=== PATIENT | female | born 1975 | race Caucasian/White ===

== ENCOUNTER → 2018-04-05 09:04 | Outpatient (CLI) | payer BC, SELFPAY ==
--- NOTE | 2018-04-05 09:12 | VDLE_ITS ---
Reason For Study: LEG SWELLING RIGHT LEFT CFV is compressible, spontaneous, phasic, CFV is compressible, spontaneous, phasic, competent and demonstrates normal competent, and demonstrates normal augmentation. augmentation. FV is compressible, spontaneous, phasic, FV is compressible, spontaneous, phasic, competent and demonstrates normal competent and demonstrates normal augmentation. augmentation. POP V is compressible, spontaneous, phasic, POP V is compressible, spontaneous, phasic, competent and demonstrates normal competent and demonstrates normal augmentation. augmentation. T/P Trunk is compressible. T/P Trunk is compressible. PTV is compressible. PTV is compressible. RT PerV is compressible. LT PerV is compressible. S/F junction competent SFJ is competent GSV competent GSV is competent SSV competent. SSV is competent. Procedure Exam performed in department. Interpretation Summary Deep veins of the lower extremities are bilaterally patent and compressible segmentally. There is no evidence of deep vein thrombosis on either side. Valvular competence appears intact within the proximal deep venous systems bilaterally. The greater saphenous veins appear bilaterally patent and compressible segmentally. Sapheno-femoral junctions are bilaterally competent . Valvular competence appears to be intact segmentally within the greater saphenous veins bilaterally. Small saphenous veins are patent and competent bilaterally. Ordering Physician: Apryl Norman Referring Physician: MD Chava Clark Performed By: Zayda Apodaca RVT
--- NOTE | 2018-04-05 09:58 | RAD_ITS ---
STUDY: X-RAY CHEST REASON FOR EXAM: Female, 42 years old. Dyspnea TECHNIQUE: Frontal and lateral views of the chest. COMPARISON: None. FINDINGS: The lungs are clear and expanded. There is no demonstrated pleural abnormality. Normal size heart. Normal mediastinum and fatoumata. Normal visualized pulmonary arteries. Normal visualized aortic arch and descending thoracic aorta. Normal visualized thoracic spine. Normal visualized ribs, clavicles, and shoulders. There is no demonstrated abnormality of the visualized soft tissue structures of the upper abdomen. RAD/Chest PA and Lateral IMPRESSION: Normal x-ray examination of the chest. Electronically Signed: Willie Troy MD at 23:58 EDT , Service support ,
--- NOTE | 2018-04-06 15:09 | LEAS_ITS ---
Arterial Study - Arterial Study Arterial Study: This is a 42-year-old female with a history of smoking. She presents with paresthesias and discoloration of her feet. She also complains of pain in the lower extremities with short distances of ambulation. Suspecting the presence of atherosclerotic peripheral arterial occlusive disease, the patient was brought to the noninvasive vascular laboratory at this time for the purpose of bilateral noninvasive lower extremity arterial assessment. Doppler signal assessment was used to evaluate the pulses at ankle level bilaterally. The posterior tibial and dorsalis pedis pulses were triphasic bilaterally. Segmental limb pressures were obtained at ankle level bilaterally. The right ankle pressure, as determined by posterior tibial pulse, was measured at 165 mmHg. The right ankle pressure, as determined by dorsalis pedis pulse, was measured at 146 mmHg. The left ankle pressure, as determined by posterior tibial pulse, was measured at 163 mmHg. The left ankle pressure, as determined by dorsalis pedis pulse, was measured at 162 mmHg. Resting ankle-brachial indices were calculated bilaterally. The resting right ankle-brachial index was calculated to be 1.28. The resting left ankle- brachial index was calculated to be 1.26. The patient was then exercised on treadmill at 1.5 mph and a 5% grade. The patient complained of paresthesias after 1 minute of exercise, and exercise was terminated after 2 minutes due to chest pressure and shortness of breath. Ankle pressures were determined 1 minute following cessation of exercise. The right ankle pressure was measured at 172 mmHg. The left ankle pressure was measured at 177 mmHg. Impression: Based upon the findings of this resting and exercise noninvasive lower extremity arterial study, there is no evidence of significant atherosclerotic peripheral arterial occlusive disease in the lower extremities bilaterally. Triphasic waveforms were noted at ankle level bilaterally. Resting ankle-brachial indices are bilaterally normal. Following a period of exercise, ankle pressures augmented bilaterally, which is a normal physiological response.
== END ==
PROVIDERS: Family Provider Preventive Medicine Occupational Medicine; PCP Preventive Medicine Occupational Medicine; Visit Provider Family Medicine
DX: R06.09 Other forms of dyspnea (principal); R25.2 Cramp and spasm; R06.00 Dyspnea, unspecified; M79.89 Other specified soft tissue disorders
CPT/HCPCS: 71046; 93922; 93970

== ENCOUNTER → 2023-12-29 | Outpatient (CLI) | payer BC, SELFPAY | END | disposition home or self-care (01) | LOC: LABSPEC 15:20 | PROVIDERS: PCP Preventive Medicine Occupational Medicine; Referring Provider Otolaryngology; Visit Provider Otolaryngology | DX: J02.9 Acute pharyngitis, unspecified (principal) | CPT/HCPCS: 87070; 87077 ==

== ENCOUNTER → 2024-01-02 | Outpatient (CLI) | payer BC, SELFPAY ==
--- NOTE | 2024-01-02 11:30 | US_ITS ---
INDICATION: NODULE EXAMINATION: Ultrasound US Thyroid (eg thyroid, parathyroid, parotid) TECHNIQUE: Garcia scale and color doppler imaging was performed of the thyroid gland. COMPARISON: No relevant prior comparison study available FINDINGS: RIGHT THYROID LOBE: 5.6 x 2.5 x 2.5 cm, volume 18.17 mL. Parenchyma: The gland echotexture is homogenous. Thyroid vascularity is normal. LEFT THYROID LOBE: 5.7 x 3.1 x 2.6 cm, volume 24.35 mL. Parenchyma: The gland echotexture is homogenous. Thyroid vascularity is normal. ISTHMUS: 0.4 cm in maximum AP dimension. Estimated total number of nodules greater than equal to 1 cm: 3. [employer] nodules are described as follows: 1. Location: Left mid Size: 1.7 x 1.6 x 1.4 cm, volume 1.9 mL. Nodule characteristics: Composition: Mixed cystic and solid (1). Echogenicity: Isoechoic (1). Shape: Wider than tall (0). Margins: Smooth (0). Echogenic Foci: None (0). ACR TI-RADS total points: 2. ACR TI-RADS category: 2. 2. Location: Left lower Size: 1.6 x 1.4 x 1.7 cm, volume 2 mL. Nodule characteristics: Composition: Solid or almost completely solid (2). Echogenicity: Isoechoic (1). Shape: Wider than tall (0). Margins: Smooth (0). Echogenic Foci: None (0). ACR TI-RADS total points: 3. ACR TI-RADS category: 3. 3. Location: Right mid Size: 1 x 0.7 x 1.4 cm, volume 0.5 mL. Nodule characteristics: Composition: Solid or almost completely solid (2). Echogenicity: Isoechoic (1). Shape: Wider than tall (0). Margins: Smooth (0). Echogenic Foci: None (0). ACR TI-RADS total points: 3. ACR TI-RADS category: 3. LYMPH NODES: No lymphadenopathy is seen in the tissue surrounding the thyroid gland. US/Thyroid IMPRESSION: Multiple bilateral thyroid nodules are identified as detailed above. Nodule #1 requires no specific follow-up. Nodule #3 also requires no specific follow-up. Nodule # 2 is appropriate for follow-up in one year based on size and appearance. ACR TI-RADS RECOMMENDATION REFERENCE: Ultrasound-guided fine-needle aspiration, follow-up ultrasound, no further follow-up. *TR 1 (0 points) and TR 2 (2 points): No FNA or follow-up. *TR 3 (3 points): FNA if more than or equal to 2.5 cm in maximum dimension. Follow-up ultrasound in 1, 3, and 5 years if 1.5 to 2.4 cm in maximum dimension. *TR 4 (4-6 points): FNA if more than or equal to 1.5 cm in maximum dimension. Follow-up ultrasound in 1, 2, 3, and 5 years if 1 to 1.4 cm in maximum dimension. *TR 5 (more than or equal to 7 points): FNA if more than or equal to 1 cm in maximum dimension. Follow-up ultrasound every year for 5 years if 0.5 to 0.9 cm in maximum dimension. *TR 3, TR 4, or TR 5 nodules that are below the size threshold for follow-up receive no follow-up. Electronically Signed: Stanley Corona MD at 7:12 EDT Reading Location ID and State: [address] [place] [address] Tel , Service support ,
== END | disposition home or self-care (01) ==
LOC: US 11:25
PROVIDERS: PCP Preventive Medicine Occupational Medicine; Referring Provider Otolaryngology; Visit Provider Otolaryngology
DX: E04.1 Nontoxic single thyroid nodule (principal)
CPT/HCPCS: 76536

== ENCOUNTER → 2024-08-10 | Outpatient (CLI) | payer BC, SELFPAY ==
--- OUTSIDE RECORDS SUMMARY | 2024-08-10 18:56 | XMS RPT_ITS | CCD ---
Author Organization [facility] Inform ion Partnership [facility] Care Team Providers Care Hand Candle Dipper Name Role Phone BRANDEN VAUGHAN DO Primary Care Physician [phone] Paola PT, Merissa Unavailable Unavailable ROCK ROS[employer] MARKETING ENGINEER, THUY Attending BRANDEN Santana DO Primary Care Unavailable BRANDEN VAUGHAN DO Primary Care Unavailable DEJON ROSARIO-[employer]ETING ENGINEER, SHAD Cee Attending Lauren DAVIS, SHAD Cee Admitting Unavai labBREANNA De Oliveira Referring Unavailable Allergies Allergy Classification Reported Allergen(s) Allergy Type Date of Onset Reaction(s) Facility (4 sources) Acetaminophen / HYDROcodone; Translations: [acetaminophen-hy drocodone] Drug Allergy [facility] Work Phone: (4 sources) Acetaminophen / oxyCODONE; Translations: [acetaminophen-ox ycodone] Drug Allergy [facility] Work Phone: (4 sources) gabapentin; Translations: [gabapentin] Drug Allergy serotonin syndrome [facility] Work Phone: (4 sources) Latex Allergy to substance [facility] Work Phone: (1 source) diazePAM; Translations: [diazepam] Drug Allergy Tachycardia (finding) [facility] Medications Current Medications Medication Drug Class(es) Dates Sig (Normalized) Sig (Original) albuterol MDI (90 mcg/inh) CFC free inhalation aerosol (4 sources) Start: 08-08-2020 take 2 puff(s) by inhalation every four hours as needed for wheezing albuterol MDI (90 mcg/inh) CFC free inhalation aerosol 2 puff(s), Inhalation, q4h, PRN as needed for wheezing, # 1 EA, 0 Refill(s), [facility]acy: [facility] Shortness of breath with exposure to COVID-19 virus, 160, cm, 07/18/20 14:47:00 EDT, Height, kg, 07/18/20 14:47:00 EDT, Dosing Weight Start Date: 08/08/20 Status: Ordered amoxicillin 875 mg / clavulanate 125 mg oral tablet (1 source) Penicillin-class Antibacterial Start: 11-17-2023 End: 11-24-2023 take 1 tablet by mouth every twelve hours amoxicillin-cla vulanate 875 mg-125 mg oral tablet 1 tab(s), Oral, q12h, X 7 day(s), # 14 tab(s), 0 Refill(s), 11/24/23 4:07:00 PM EST, Pharmacy: [facility] #[id number], 160, cm, 11/16/23 21:57:00 EST, Height, 122.7, kg, 11/16/23 21:57:00 EST, Dosing Weight Start Date: 11/17/23 Stop Date: 11/24/23 Status: Ordered diphenhydrAMINE hydrochloride 25 mg oral capsule (4 sources) Histamine-1 Receptor Antagonist Start: 07-15-2019 Benadryl 25 mg oral capsule Dose : 25 mg = 1 cap(s), Oral, TID, PRN for allergy symptoms, # 30 cap(s), 0 Refill(s) Start Date: 07/15/19 Status: Ordered fluticasone propionate 0.05 mg/actuat metered dose nasal spray (1 source) Corticosteroid Start: 11-02-2023 take 50 ug nasal route twice daily Flonase 50 mcg/inh nasal spray 50 mcg Dose = 1 spray(s), Nostril, each, BID, # 16 gram(s), 0 Refill(s), Pharmacy: [facility] #[id number], Acute sinusitis, 160, cm, 11/02/23 13:50:00 EST, Height, kg, 11/02/23 13:50:00 EST, Dosing Weight Start Date: 11/02/23 Status: Ordered hydroCHLOROthiazide 25 mg / triamterene 37.5 mg oral tablet (2 sources) Potassium-sparing Diuretic, Thiazide Diuretic Start: 06-05-2022 take 1 tablet by mouth once daily as needed hydrochlorothia zide-triamteren e 25 mg-37.5 mg oral tablet Dose = 1 tab(s), Oral, qDay, PRN Swelling, # 90 tab(s), 1 Refill(s), Pharmacy: [facility]/pharmacy #[id number], Pedal edema, 160, cm, 04/25/22 15:08:00 EDT, Height, kg, 04/25/22 15:08:00 EDT, Dosing Weight Start Date: 06/05/22 Status: Ordered Start: 03-14-2022 take 1 tablet by mouth once daily hydrochlorothiazide-triamterene 25 mg-37 .5 mg oral tablet Dose = 1 tab(s), Oral, qDay, # 30 tab(s), 1 Refill(s), Pharmacy: [address] Pedal edema, 160, cm, 03/14/22 11:04:00 EDT, Height Start Date: 03/14/22 Status: Ordered ammonium lactate 120 mg/ml topical cream (2 sources) Start: 03-14-2022 ammonium lacta te 12% topical cream Apply 1 elvi, Topical, BID, PRN Dry skin, # 385 gram(s), 5 Refill(s), [facility] Cream, 160, cm, 03/14/22 11:04:00 EDT, Height, 125.9 Start Date: 03/14/22 Status: Ordered omeprazole 10 mg delayed release oral capsule (4 sources) Proton Pump Inhibitor Start: 03-09-2014 omeprazole 10 mg oral delayed release capsule (NF) Dose : 10 mg = 1 cap(s), Oral, qDayAC, 0 Refill(s) Start Date: 03/09/14 Status: Ordered QUEtiapine 25 mg oral tablet (1 source) Atypical Antipsychotic Start: 11-02-2023 take 1-3 tablets by mouth at bedtime as needed for sleep QUEtiapine 25 mg oral tablet PRN Sleep, take 1 to 3 tablets by mouth at bedtime Start Date: 11/02/23 Status: Ordered topiramate 25 mg oral tablet (2 sources) Start: 03-14-2022 topiramate 25 mg oral tablet Dose : 75 mg = 3 tab(s), Oral, qDay, # 60 tab(s), 0 Refill(s) Start Date: 03/14/22 Status: Ordered Completed/Discontinued Medications Medication Drug Class(es) Dates Sig (Normalized) Sig (Original) LORazepam 1 mg oral tablet (4 sources) Benzodiazepine Start: 10-30-2020 End: 11-29-2020 LORazepam 1 mg oral tablet Dose : 1 mg = 1 tab(s), Oral, q6hr, PRN as needed for anxiety, # 120 tab(s), 0 Refill(s), Pharmacy: [facility], Chronic anxiety, 160, cm, 10/30/20 16:08:00 EST, Height, 115.4, kg, 10/30/20 16:08:00 EST, Dosing Weight Start Date: 10/30/20 Stop Date: 11/29/20 Status: Ordered Problems Active Problems Problem Classification Problem Date Documented Date Episodic/Chronic Acute and chronic tonsillitis (1 source) Acute tonsillitis; Translations: [Acute tonsillitis, unspecified] Onset: 11-17-2023 Episodic Anxiety disorders (8 sources) Chronic anxiety; Translations: [Posttraumatic stress disorder] 03-06-2020 Chronic Attention-deficit, conduct, and disruptive behavior disorders (4 sources) Attention deficit hyperactivity disorder, 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 Esophageal disorders (4 sources) Gastric reflux 03-09-2014 Chronic Menopausal disorders (4 sources) Menopausal flushing 05-15-2020 Chronic Other nutritional; endocrine; and metabolic disorders (2 sources) Obesity 08-02-2021 Chronic Other skin disorders (2 sources) Dry skin 03-14-2022 Episodic Other upper respiratory infections (1 source) Acute sinusitis, unspecified; Translations: [Acute sinusitis, unspecified] Onset: 11-17-2023 Episodic Residual codes; unclassified (4 sources) Sleep apnea 03-09-2014 Chronic Residual codes; unclassified (4 sources) Perimenopausal state 05-15-2020 Episodic Residual codes; unclassified (2 sources) Edema of foot 03-14-2022 Episodic Spondylosis; intervertebral disc disorders; other back problems (2 sources) Low back pain 02-26-2021 Episodic Unclassified (4 sources) History of SARS-CoV-2 03-05-2021 Past or Other Problems Problem Classification Problem Date Documented Date Episodic/Chronic Genitourinary symptoms and ill-defined conditions (2 sources) Unspecified symptoms and signs involving the genitourinary system; Translations: [Unspecified symptoms and signs involving the genitourinary system] Onset: 02-26-2023 Episodic Results Test Name Value Interpretation Reference Range Facility .Auto Diffon 11-17-2023 Basophil, Absolute 0.0 10 3/mcL Normal 0.0-0.2 [facility] ([place]) Comment on above: Performed By: #### C BC, GFR, CMP, ANEU, ADIFF #### [address] [address] Basophils/100 WBC (Bld) 0.1 % Normal 0.0-2.5 [facility] ([place]) Comment on above: Performed By: #### C BC, GFR, CMP, ANEU, ADIFF #### [address] [address] Eosinophil, Absolute 0.0 10 3/mcL Normal 0.0-0.4 [facility] ([place]) Comment on above: Performed By: #### C BC, GFR, CMP, ANEU, ADIFF #### [address] [address] Eosinophils/100 WBC (Bld) 0.0 % Normal 0.0-7.0 [facility] ([place]) Comment on above: Performed By: #### C BC, GFR, CMP, ANEU, ADIFF #### [address] [address] Lymphocyte, Absolute 1.0 10 3/mcL Normal 0.8-3.9 [facility] ([place]) Comment on above: Performed By: #### C BC, GFR, CMP, ANEU, ADIFF #### [address] [address] Lymphocytes/100 WBC (Bld) 5.5 % Low 10.0-50.0 [facility] ([place]) Comment on above: Performed By: #### C BC, GFR, CMP, ANEU, ADIFF #### [address] [place] [address] Monocyte, Absolute 0.6 10 3/mcL Normal 0.2-1.0 [facility] ([place]) Comment on above: Performed By: #### C BC, GFR, CMP, ANEU, ADIFF #### [address] [address] Monocytes/100 WBC (Bld) 3.0 % Normal 1.7-13.0 [facility] ([place]) Comment on above: Performed By: #### C BC, GFR, CMP, ANEU, ADIFF #### [address] [address] Neutrophils/100 WBC (Bld) 91.4 % High 37.0-80.0 [facility] ([place]) Comment on above: Performed By: #### C BC, GFR, CMP, ANEU, ADIFF #### [address] [address] .GFRon 11-17-2023 GFR 106 ml/min/1.73sqm Normal [facility] ([place]) Comment on above: Result Comment: GFR Population mean for , Non- Americans Ages 20-29 = 116 mL/min/1.73 sq.m. Ages 30-39 = 107 mL/min/1.73 sq.m. Ages 40-49 = 99 mL/min/1.73 sq.m. Ages 50-59 = 93 mL/min/1.73 sq.m. Ages 60-69 = 85 mL/min/1.73 sq.m. Ages 70+ = 75 mL/min/1.73 sq.m. Chronic Kidney Disease: Less than 60 mL/min/1.73 square meters End Stage Renal Disease: Less than 15 mL/min/1.73 square meters Performed By: #### C BC, ANEU, MDW, ADIFF, BMP, MONO, GFR #### [address] [address] GFR Non- 87 ml/min/1.73sqm Normal [facility] ([place]) Comment on above: Result Comment: GFR Population mean for , Non- Americans Ages 20-29 = 116 mL/min/1.73 sq.m. Ages 30-39 = 107 mL/min/1.73 sq.m. Ages 40-49 = 99 mL/min/1.73 sq.m. Ages 50-59 = 93 mL/min/1.73 sq.m. Ages 60-69 = 85 mL/min/1.73 sq.m. Ages 70+ = 75 mL/min/1.73 sq.m. Chronic Kidney Disease: Less than 60 mL/min/1.73 square meters End Stage Renal Disease: Less than 15 mL/min/1.73 square meters Performed By: #### C YOAN, ALYSIA, W, ADIFF, BMP, MONO, GFR #### [address] [address] .NEUABSon 11-17-2023 Neutrophil, Absolute 17.1 10 3/mcL High 2.9-6.2 A [facility] ([place]) Comment on above: Performed By: #### C YOAN, MD ALYSIAW, ADIFF, BMP, MONO, GFR #### [place] [id number] CBCon 11-17-2023 Erythrocyte distribution width (RBC) [Ratio] 14.5 % Normal 11.5-14.5 [facility] ([place]) Comment on above: Performed By: #### C BC, GFR, CMP, ANEU, ADIFF #### [place] [id number] Hematocrit (Bld) [Volume fraction] 35.7 % Low 37.0-47.0 [facility] ([place] Comment on above: Performed By: #### C BC, GFR, CMP, ANEU, ADIFF #### [address] [address] Hgb 11.8 G/dL Low 12.0-16.0 [facility] ([place] Comment on above: Performed By: #### C BC, GFR, CMP, ANEU, ADIFF #### [address] [address] MCH (RBC) [Entitic mass] 26.7 pg Low 27.0-31.2 [facility] ([place] Comment on above: Performed By: #### C BC, GFR, CMP, ANEU, ADIFF #### [address] [address] MCHC 33.0 G/dL Normal 33.0-37.0 [facility] ([place] Comment on above: Performed By: #### C BC, GFR, CMP, ANEU, ADIFF #### [address] [address] MCV (RBC) [Entitic vol] 80.8 fL Normal 80.0-94.0 [facility] ([place]) Comment on above: Performed By: #### C BC, GFR, CMP, ANEU, ADIFF #### [address] [address] Platelet 263 10 3/mcL Normal 130-400 [facility] ([place]) Comment on above: Performed By: #### C BC, GFR, CMP, ANEU, ADIFF #### [address] [address] Platelet mean volume (Bld) [Entitic vol] 8.3 fL Normal 7.4-10.4 [facility] ([place] Comment on above: Performed By: #### C BC, GFR, CMP, ANEU, ADIFF #### [address] [address] RBC 4.42 10 6/mcL Normal 4.20-5.40 [facility] ([place] Comment on above: Performed By: #### C BC, GFR, CMP, ANEU, ADIFF #### [address] [address] WBC 18.7 10 3/mcL High 4.6-10.8 [facility] ([place] Comment on above: Performed By: #### C BC, GFR, CMP, ANEU, ADIFF #### [address] [address] CMPon 11-17-2023 Albumin Level 2.7 G/dL Low 3.5-5.0 [facility] ([place] Comment on above: Performed By: #### C BC, ANEU, MDW, ADIFF, BMP, MONO, GFR #### [address] [address] Albumin/Globulin [Mass ratio] 0.6 {ratio} Low 1.1-2.5 [facility] ([place] Comment on above: Performed By: #### C BC, ALYSIA, MDW, ADIFF, BMP, MONO, GFR #### [address] [address] ALP [Catalytic activity/Vol] 103 U/L Normal 40-135 [facility] ([place] Comment on above: Performed By: #### C YOAN, ALYSIA, MDW, ADIFF, BMP, MONO, GFR #### [address] [address] ALT [Catalytic activity/Vol] 49 U/L Normal 14-59 [facility] ([place] Comment on above: Performed By: #### C YOAN, ALYSIA, MDW, ADIFF, BMP, MONO, GFR #### [address] [address] AST [Catalytic activity/Vol] 22 U/L Normal 10-40 [facility] ([place] Comment on above: Performed By: #### C YOAN, ALYSIA, MDW, ADIFF, BMP, MONO, GFR #### [address] [address] Bili Total 0.2 mg/dL Normal 0.2-1.0 [facility] ([place]) Comment on above: Result Comment: Use of this assay is not recommended for patients undergoing treatment with eltrombopag due to the potential for falsely elevated results. Performed By: #### C BC, ALYSIA, MDW, ADIFF, BMP, MONO, GFR #### [address] [address] BUN/Creatinine Ratio 18 ratio Normal 7-27 [facility] ([place]) Comment on above: Performed By: #### C BC, ALYSIA, MDW, ADIFF, BMP, MONO, GFR #### [address] [address] Calcium [Mass/Vol] 9.2 mg/dL Normal 8.4-10.2 [facility] ([place] Comment on above: Performed By: #### C BC, ALYSIA, MDW, ADIFF, BMP, MONO, GFR #### [address] [address] Chloride [Moles/Vol] 106 mmol/L Normal 98-107 [facility] ([place]) Comment on above: Performed By: #### C BC, ANEU, MDW, ADIFF, BMP, MONO, GFR #### [place] [address] CO2 [Moles/Vol] 26 mmol/L Normal 22-29 [facility] ([place] Comment on above: Performed By: #### C BC, ANEU, MDW, ADIFF, BMP, MONO, GFR #### [place] [address] Creatinine [Mass/Vol] 0.71 mg/dL Normal 0.55-1.02 [facility] ([place]) Comment on above: Performed By: #### C BC, ALYSIA, MDW, ADIFF, BMP, MONO, GFR #### [place] [address] Electrolyte Balance 11.0 mEq/L Normal 4.0-15.0 [facility] ([place]) Comment on above: Performed By: #### C BC, ANEU, MDW, ADIFF, BMP, MONO, GFR #### [address] [address] Globulin 4.3 G/dL Normal [facility] ([place] Comment on above: Performed By: #### C BC, ALYSIA, MDW, ADIFF, BMP, MONO, GFR #### [address] [address] Glucose [Mass/Vol] 159 mg/dL High 70-105 [facility] [place] Comment on above: Performed By: #### C BC, ANEU, MDW, ADIFF, BMP, MONO, GFR #### [place] [address] Potassium [Moles/Vol] 4.3 mmol/L Normal 3.5-5.1 [facility] ([place]) Comment on above: Performed By: #### C YOAN, JEFF HATFIELD, ADIFF, BMP, MONO, GFR #### [place] [id number] [place], [place] [address] Sodium [Moles/Vol] 143 mmol/L Normal 136-145 [facility] [place] Comment on above: Performed By: #### C YOAN, JEFF HATFIELD, ADIFF, BMP, MONO, GFR #### [place] [id number] [place], [place] [address] Total Protein 7.0 G/dL Normal 6.4-8.2 [facility] ([place] Comment on above: Performed By: #### C YOAN, JEFF HATFIELD, ADIFF, BMP, MONO, GFR #### [place] [id number] [place], [place] [address] Urea nitrogen [Mass/Vol] 13 mg/dL Normal 7-18 [facility] ([place]) Comment on above: Performed By: #### C YOAN, JEFF HATFIELD, ADIFF, BMP, MONO, GFR #### [address] [address] LABORATORYOrdered By: SYSTEM SYSTEM on 11-17-2023 Albumin BCP dye [Mass/Vol] 2.7 G/dL Low 3.5 - 5.0 G/dL AO ADM SS Albumin/Globulin [Mass ratio] 0.6 {ratio} Low 1.1 - 2.5 ratio AO ADM SS ALP [Catalytic activity/Vol] 103 U/L Normal 40 - 135 U/L AO ADM SS ALT With P-5'-P [Catalytic activity/Vol] 49 U/L Normal 14 - 59 U/L AO ADM SS AST With P-5'-P [Catalytic activity/Vol] 22 U/L Normal 10 - 40 U/L AO ADM SS Basophil, Absolute 0.0 103/mcL Normal 0.0 - 0.2 10^3/mcL AO Workflow SS Basophils/100 WBC (Bld) 0.1 % Normal 0.0 - 2.5 % AO Workflow SS Bilirubin [Mass/Vol] 0.2 mg/dL Normal 0.2 - 1 .0 mg/dL AO ADM SS Comment on above: Interpretive Data: U se of this assay is not recommended for patients undergoing treatment with eltrombopag due to the potential for falsely elevated results. Calcium [Mass/Vol] 9.2 mg/dL Normal 8.4 - 10. 2 mg/dL AO ADM SS Chloride [Moles/Vol] 106 mmol/L Normal 98 - 10 7 mmol/L AO ADM SS CO2 [Moles/Vol] 26 mmol/L Normal 22 - 29 mmol/L AO ADM SS Creatinine [Mass/Vol] 0.71 mg/dL Normal 0.55 - 1.02 mg/dL AO ADM SS Electrolyte Balance 11.0 mEq/L Normal 4.0 - 15 .0 mEq/L AO ADM SS Eosinophil, Absolute 0.0 103/mcL Normal 0.0 - 0 .4 10^3/mcL AO Workflow SS Eosinophils/100 WBC (Bld) 0.0 % Normal 0.0 - 7.0 % AO Workflow SS Erythrocyte distribution width (RBC) [Ratio] 14.5 % Normal 11.5 - 14.5 % AO Workflow SS GFR/1.73 sq M.predicted among blacks MDRD (S/P/Bld) [Vol rate/Area] 106 ml/min/1.73sqm Invalid Interpretation Code AO Chemistry S Comment on above: Interpretive Data: GFR Population mean for , Non- Americans Ages 20-29 = 116 mL/min/1.73 sq.m. Ages 30-39 = 107 mL/min/1.73 sq.m. Ages 40-49 = 99 mL/min/1.73 sq.m. Ages 50-59 = 93 mL/min/1.73 sq.m. Ages 60-69 = 85 mL/min/1.73 sq.m. Ages 70+ = 75 mL/min/1.73 sq.m. Chronic Kidney Disease: Less than 60 mL/min/1.73 square meters End Stage Renal Disease: Less than 15 mL/min/1.73 square meters GFR/1.73 sq M.predicted among non-blacks MDRD (S/P/Bld) [Vol rate/Area] 87 ml/min/1.73sqm Invalid Interpretation Code AO Chemistry S Comment on above: Interpretive Data: GFR Population mean for , Non- Americans Ages 20-29 = 116 mL/min/1.73 sq.m. Ages 30-39 = 107 mL/min/1.73 sq.m. Ages 40-49 = 99 mL/min/1.73 sq.m. Ages 50-59 = 93 mL/min/1.73 sq.m. Ages 60-69 = 85 mL/min/1.73 sq.m. Ages 70+ = 75 mL/min/1.73 sq.m. Chronic Kidney Disease: Less than 60 mL/min/1.73 square meters End Stage Renal Disease: Less than 15 mL/min/1.73 square meters Globulin 4.3 G/dL Invalid Interpretation Code AO ADM SS Glucose [Mass/Vol] 159 mg/dL High 70 - 105 mg/dL AO ADM SS Hematocrit (Bld) [Volume fraction] 35.7 % Low 37.0 - 47.0 % AO Workflow SS Hemoglobin (Bld) [Mass/Vol] 11.8 G/dL Low 12.0 - 16.0 G/dL AO Workflow SS Lymphocyte, Absolute 1.0 103/mcL Normal 0.8 - 3 .9 10^3/mcL AO Workflow SS Lymphocytes/100 WBC (Bld) 5.5 % Low 10.0 - 50.0 % AO Workflow SS MCH (RBC) [Entitic mass] 26.7 pg Low 27.0 - 31.2 pg AO Workflow SS MCHC 33.0 G/dL Normal 33.0 - 37.0 G/dL AO Workflow SS MCV (RBC) [Entitic vol] 80.8 fL Normal 80.0 - 94.0 fL AO Workflow SS Monocyte, Absolute 0.6 103/mcL Normal 0.2 - 1.0 10^3/mcL AO Workflow SS Monocytes/100 WBC (Bld) 3.0 % Normal 1.7 - 13.0 % AO Workflow SS Neutrophil, Absolute 17.1 103/mcL High 2.9 - 6 .2 10^3/mcL AO Workflow SS Neutrophils/100 WBC (Bld) 91.4 % High 37.0 - 80.0 % AO Workflow SS Platelet mean volume (Bld) [Entitic vol] 8.3 fL Normal 7.4 - 10.4 fL AO Workflow SS Platelets (Bld) [#/Vol] 263 103/mcL Normal 130 - 400 10^3/mcL AO Workflow SS Potassium [Moles/Vol] 4.3 mmol/L Normal 3.5 - 5.1 mmol/L AO ADM SS Protein [Mass/Vol] 7.0 G/dL Normal 6.4 - 8.2 G/dL AO ADM SS RBC (Bld) [#/Vol] 4.42 106/mcL Normal 4.20 - 5.4 0 10^6/mcL AO Workflow SS Sodium [Moles/Vol] 143 mmol/L Normal 136 - 145 mmol/L AO ADM SS Urea nitrogen [Mass/Vol] 13 mg/dL Normal 7 - 18 mg/dL AO ADM SS Urea nitrogen/Creatinine [Mass ratio] 18 ratio Normal 7 - 27 ratio AO ADM SS WBC (Bld) [#/Vol] 18.7 103/mcL High 4.6 - 10.8 10^3/mcL AO Workflow SS .Auto Diffon 11-16-2023 Basophil, Absolute 0.1 10 3/mcL Normal 0.0-0.2 [facility] ([place]) Comment on above: Performed By: #### C ALYSIA MILTON MDW, ADIFF, BMP, MONO, GFR #### [address] [address] Basophils/100 WBC (Bld) 0.5 % Normal 0.0-2.5 [facility] ([place]) Comment on above: Performed By: #### C ALYSIA MILTON MDW, ADIFF, BMP, MONO, GFR #### [address] [address] Eosinophil, Absolute 0.0 10 3/mcL Normal 0.0-0.4 [facility] ([place]) Comment on above: Performed By: #### C ALYSIA MILTON MDW, ADIFF, BMP, MONO, GFR #### [address] [address] Eosinophils/100 WBC (Bld) 0.0 % Normal 0.0-7.0 [facility] ([place]) Comment on above: Performed By: #### C ALYSIA MILTON MDW, ADIFF, BMP, MONO, GFR #### [address] [address] Lymphocyte, Absolute 0.8 10 3/mcL Normal 0.8-3.9 [facility] ([place]) Comment on above: Performed By: #### C BC, ANEU, MDW, ADIFF, BMP, MONO, GFR #### [address] [address] Lymphocytes/100 WBC (Bld) 5.2 % Low 10.0-50.0 [facility] ([place]) Comment on above: Performed By: #### C BC, ANEU, MDW, ADIFF, BMP, MONO, GFR #### [address] [address] Monocyte, Absolute 0.9 10 3/mcL Normal 0.2-1.0 [facility] ([place]) Comment on above: Performed By: #### C BC, ANEU, MDW, ADIFF, BMP, MONO, GFR #### [address] [address] Monocytes/100 WBC (Bld) 5.7 % Normal 1.7-13.0 [facility] ([place]) Comment on above: Performed By: #### C BC, ANEU, MDW, ADIFF, BMP, MONO, GFR #### [address] [address] Neutrophils/100 WBC (Bld) 88.6 % High 37.0-80.0 [facility] ([place]) Comment on above: Performed By: #### C BC, ANEU, MDW, ADIFF, BMP, MONO, GFR #### [address] [address] .GFRon 11-16-2023 GFR Non- 77 ml/min/1.73sqm Normal [facility] ([place]) Comment on above: Result Comment: GFR Population mean for , Non- Americans Ages 20-29 = 116 mL/min/1.73 sq.m. Ages 30-39 = 107 mL/min/1.73 sq.m. Ages 40-49 = 99 mL/min/1.73 sq.m. Ages 50-59 = 93 mL/min/1.73 sq.m. Ages 60-69 = 85 mL/min/1.73 sq.m. Ages 70+ = 75 mL/min/1.73 sq.m. Chronic Kidney Disease: Less than 60 mL/min/1.73 square meters End Stage Renal Disease: Less than 15 mL/min/1.73 square meters Performed By: #### C BC, ANEU, MDW, ADIFF, BMP, MONO, GFR #### [address] [address] GFR 94 ml/min/1.73sqm Normal [facility] ([place]) Comment on above: Result Comment: GFR Population mean for , Non- Americans Ages 20-29 = 116 mL/min/1.73 sq.m. Ages 30-39 = 107 mL/min/1.73 sq.m. Ages 40-49 = 99 mL/min/1.73 sq.m. Ages 50-59 = 93 mL/min/1.73 sq.m. Ages 60-69 = 85 mL/min/1.73 sq.m. Ages 70+ = 75 mL/min/1.73 sq.m. Chronic Kidney Disease: Less than 60 mL/min/1.73 square meters End Stage Renal Disease: Less than 15 mL/min/1.73 square meters Performed By: #### C BC, ANEU, MDW, ADIFF, BMP, MONO, GFR #### [address] [address] .MDWon 11-16-2023 Monocyte Distribution Width 24.60 High 0.00-20.00 [facility] ([place]) Comment on above: Result Comment: For adults in ED, MDW>20.0 may be associated with a higher risk of sepsis during the first 12hrs of hospital admission Performed By: #### C BC, ANEU, MDW, ADIFF, BMP, MONO, GFR #### [address] [address] .NEUABSon 11-16-2023 Neutrophil, Absolute 14.4 10 3/mcL High 2.9-6.2 A [facility] ([place]) Comment on above: Performed By: #### C BC, ANEU, MDW, ADIFF, BMP, MONO, GFR #### [address] [address] BMPon 11-16-2023 BUN/Creatinine Ratio 11 ratio Normal 7-27 [facility] ([place]) Comment on above: Performed By: #### C YOAN, ALYSIA, MDW, ADIFF, BMP, MONO, GFR #### [address] [address] Calcium [Mass/Vol] 8.8 mg/dL Normal 8.4-10.2 [facility] [place] Comment on above: Performed By: #### C YOAN, ALYSIA, MDW, ADIFF, BMP, MONO, GFR #### [address] [address] Chloride [Moles/Vol] 102 mmol/L Normal 98-107 [facility] ([place]) Comment on above: Performed By: #### C YOAN, ALYSIA, MDW, ADIFF, BMP, MONO, GFR #### [place] [address] CO2 [Moles/Vol] 25 mmol/L Normal 22-29 [facility] ([place]) Comment on above: Performed By: #### C YOAN, ALYSIA, MDW, ADIFF, BMP, MONO, GFR #### [place] [address] Creatinine [Mass/Vol] 0.79 mg/dL Normal 0.55-1.02 [facility] ([place]) Comment on above: Performed By: #### C YOAN, ALYSIA, MDW, ADIFF, BMP, MONO, GFR #### [address] [address] Electrolyte Balance 14.0 mEq/L Normal 4.0-15.0 [facility] ([place]) Comment on above: Performed By: #### C YOAN, ALYSIA, MDW, ADIFF, BMP, MONO, GFR #### [place] [id number] Glucose [Mass/Vol] 150 mg/dL High 70-105 [facility] ([place] Comment on above: Performed By: #### C YOAN, ALYSIA, MDW, ADIFF, BMP, MONO, GFR #### [address] [address] Potassium [Moles/Vol] 3.5 mmol/L Normal 3.5-5.1 [facility] ([place]) Comment on above: Performed By: #### C YOAN, ALYSIA, W, ADIFF, BMP, MONO, GFR #### [address] [address] Sodium [Moles/Vol] 141 mmol/L Normal 136-145 [facility] ([place]) Comment on above: Performed By: #### C YOAN, ALYSIA, W, ADIFF, BMP, MONO, GFR #### [place] [address] Urea nitrogen [Mass/Vol] 9 mg/dL Normal 7-18 [facility] ([place]) Comment on above: Performed By: #### C YOAN, ALYSIA, W, ADIFF, BMP, MONO, GFR #### [place] [id number] CBCon 11-16-2023 Erythrocyte distribution width (RBC) [Ratio] 14.4 % Normal 11.5-14.5 [facility] ([place]) Comment on above: Performed By: #### C YOAN, ALYSIA, W, ADIFF, BMP, MONO, GFR #### [address] [address] Hematocrit (Bld) [Volume fraction] 37.5 % Normal 37.0-47.0 [facility] ([place]) Comment on above: Performed By: #### C YOAN, ALYSIA, W, ADIFF, BMP, MONO, GFR #### [address] [address] Hgb 12.7 G/dL Normal 12.0-16.0 [facility] ([place]) Comment on above: Performed By: #### C YOAN, ALYSIA, MDW, ADIFF, BMP, MONO, GFR #### [address] [address] MCH (RBC) [Entitic mass] 27.3 pg Normal 27.0-31.2 [facility] ([place]) Comment on above: Performed By: #### C YOAN, ALYSIA, MDW, ADIFF, BMP, MONO, GFR #### [address] [address] MCHC 33.8 G/dL Normal 33.0-37.0 [facility] ([place]) Comment on above: Performed By: #### C BC, ALYSIA, MDW, ADIFF, BMP, MONO, GFR #### [address] [address] MCV (RBC) [Entitic vol] 80.8 fL Normal 80.0-94.0 [facility] ([place]) Comment on above: Performed By: #### C YOAN, ALYSIA, MDW, ADIFF, BMP, MONO, GFR #### [address] [address] Platelet 257 10 3/mcL Normal 130-400 [facility] ([place]) Comment on above: Performed By: #### C YOAN, ALYSIA, MDW, ADIFF, BMP, MONO, GFR #### [address] [address] Platelet mean volume (Bld) [Entitic vol] 8.0 fL Normal 7.4-10.4 [facility] ([place]) Comment on above: Performed By: #### C YOAN, ALYSIA, MDW, ADIFF, BMP, MONO, GFR #### [address] [address] RBC 4.65 10 6/mcL Normal 4.20-5.40 [facility] ([place]) Comment on above: Performed By: #### C YOAN, ALYSIA, MDW, ADIFF, BMP, MONO, GFR #### [address] [address] WBC 16.3 10 3/mcL High 4.6-10.8 [facility] ([place]) Comment on above: Performed By: #### C YOAN, ALYSIA, MDW, ADIFF, BMP, MONO, GFR #### [address] [address] [address] SOFT TISSUE NECK W/ CONTR [place] 11-16-2023 CT SOFT TISSUE NECK W/ CONTRAST ORIGINAL EXAMINATION: CT OF THE NECK SOFT TISSUE WITH CONTRAST 11/16/2023 TECHNIQUE: CT of the neck was performed with the administration of intravenous contrast. Multiplanar reformatted images are provided for review. Automated exposure control, iterative reconstruction, and/or weight based adjustment of the mA/kV was utilized to reduce the radiation dose to as low as reasonably achievable. COMPARISON: None. HISTORY: ORDERING SYSTEM PROVIDED HISTORY: Reason for Exam: sore throat pain FINDINGS: PHARYNX/LARYNX: The palatine tonsils appear enlarged and heterogeneous without discrete collection to suggest abscess. SALIVARY GLANDS/THYROID: Salivary glands unremarkable. Enlarged thyroid gland. There is a hypodense left thyroid lobe nodule measuring 2.0 cm craniocaudal. LYMPH NODES: Borderline bilateral cervical lymph nodes are likely reactive given tonsillar findings. SOFT TISSUES: No appreciable soft tissue swelling or mass is seen. BRAIN/ORBITS/SINUSES : Unremarkable. LUNG APICES/SUPERIOR MEDIASTINUM: Unremarkable. BONES: No aggressive appearing lytic or blastic bony lesion. There are very mild degenerative changes of the cervical spine. IMPRESSION: Enlarged and heterogeneous palatine tonsils most compatible with tonsillitis. No evidence of abscess. 2.0 cm left thyroid lobe nodule which can be correlated with nonemergent outpatient thyroid ultrasound. I have personally reviewed the images of this examination and agree with the resident's findings and interpretation. RECOMMENDATIONS: 1.3 cm incidental left thyroid nodule. No follow-up imaging is recommended. Reference: J Am Davon Radiol. 2015 Nov;12(2): 143-50 Interpreted by: Humberto Hernandez Preliminary Report By: Oz Reddy Electronically signed By Humberto Hernandez Dictated Date: 11/16/2023 6:10:11 PM Prelim Date: 11/16/2023 6:16:08 PM Sign Date: 11/16/2023 6:30:57 PM Ordering Provider: GALINA Merchant [facility] ([place]) LABORATORYOrdered By: SYSTEM SYSTEM on 11-16-2023 Basophil, Absolute 0.1 103/mcL Normal 0.0 - 0.2 10^3/mcL AO Workflow SS Basophils/100 WBC (Bld) 0.5 % Normal 0.0 - 2.5 % AO Workflow SS Calcium [Mass/Vol] 8.8 mg/dL Normal 8.4 - 10. 2 mg/dL AO ADM SS Chloride [Moles/Vol] 102 mmol/L Normal 98 - 10 7 mmol/L AO ADM SS CO2 [Moles/Vol] 25 mmol/L Normal 22 - 29 mmol/L AO ADM SS Creatinine [Mass/Vol] 0.79 mg/dL Normal 0.55 - 1.02 mg/dL AO ADM SS Electrolyte Balance 14.0 mEq/L Normal 4.0 - 15 .0 mEq/L AO ADM SS Eosinophil, Absolute 0.0 103/mcL Normal 0.0 - 0 .4 10^3/mcL AO Workflow SS Eosinophils/100 WBC (Bld) 0.0 % Normal 0.0 - 7.0 % AO Workflow SS Erythrocyte distribution width (RBC) [Ratio] 14.4 % Normal 11.5 - 14.5 % AO Workflow SS GFR/1.73 sq M.predicted among blacks MDRD (S/P/Bld) [Vol rate/Area] 94 ml/min/1.73sqm Invalid Interpretation Code AO Chemistry S Comment on above: Interpretive Data: GFR Population mean for , Non- Americans Ages 20-29 = 116 mL/min/1.73 sq.m. Ages 30-39 = 107 mL/min/1.73 sq.m. Ages 40-49 = 99 mL/min/1.73 sq.m. Ages 50-59 = 93 mL/min/1.73 sq.m. Ages 60-69 = 85 mL/min/1.73 sq.m. Ages 70+ = 75 mL/min/1.73 sq.m. Chronic Kidney Disease: Less than 60 mL/min/1.73 square meters End Stage Renal Disease: Less than 15 mL/min/1.73 square meters GFR/1.73 sq M.predicted among non-blacks MDRD (S/P/Bld) [Vol rate/Area] 77 ml/min/1.73sqm Invalid Interpretation Code AO Chemistry S Comment on above: Interpretive Data: GFR Population mean for , Non- Americans Ages 20-29 = 116 mL/min/1.73 sq.m. Ages 30-39 = 107 mL/min/1.73 sq.m. Ages 40-49 = 99 mL/min/1.73 sq.m. Ages 50-59 = 93 mL/min/1.73 sq.m. Ages 60-69 = 85 mL/min/1.73 sq.m. Ages 70+ = 75 mL/min/1.73 sq.m. Chronic Kidney Disease: Less than 60 mL/min/1.73 square meters End Stage Renal Disease: Less than 15 mL/min/1.73 square meters Glucose [Mass/Vol] 150 mg/dL High 70 - 105 mg/dL AO ADM SS Hematocrit (Bld) [Volume fraction] 37.5 % Normal 37.0 - 47.0 % AO Workflow SS Hemoglobin (Bld) [Mass/Vol] 12.7 G/dL Normal 12.0 - 16.0 G/dL AO Workflow SS Lymphocyte, Absolute 0.8 103/mcL Normal 0.8 - 3 .9 10^3/mcL AO Workflow SS Lymphocytes/100 WBC (Bld) 5.2 % Low 10.0 - 50.0 % AO Workflow SS MCH (RBC) [Entitic mass] 27.3 pg Normal 27.0 - 31.2 pg AO Workflow SS MCHC 33.8 G/dL Normal 33.0 - 37.0 G/dL AO Workflow SS MCV (RBC) [Entitic vol] 80.8 fL Normal 80.0 - 94.0 fL AO Workflow SS Monocyte distribution width Auto (Bld) [Entitic vol] 24.60 1 High 0.00 - 20.00 AO Workflow SS Comment on above: Result Comment: For adults in ED, MDW>20.0 may be associated with a higher risk of sepsis during the first 12hrs of hospital admission Monocyte, Absolute 0.9 103/mcL Normal 0.2 - 1.0 10^3/mcL AO Workflow SS Monocytes/100 WBC (Bld) 5.7 % Normal 1.7 - 13.0 % AO Workflow SS Neutrophil, Absolute 14.4 103/mcL High 2.9 - 6 .2 10^3/mcL AO Workflow SS Neutrophils/100 WBC (Bld) 88.6 % High 37.0 - 80.0 % AO Workflow SS Platelet mean volume (Bld) [Entitic vol] 8.0 fL Normal 7.4 - 10.4 fL AO Workflow SS Platelets (Bld) [#/Vol] 257 103/mcL Normal 130 - 400 10^3/mcL AO Workflow SS Potassium [Moles/Vol] 3.5 mmol/L Normal 3.5 - 5.1 mmol/L AO ADM SS RBC (Bld) [#/Vol] 4.65 106/mcL Normal 4.20 - 5.4 0 10^6/mcL AO Workflow SS Sodium [Moles/Vol] 141 mmol/L Normal 136 - 145 mmol/L AO ADM SS Urea nitrogen [Mass/Vol] 9 mg/dL Normal 7 - 18 mg/dL AO ADM SS Urea nitrogen/Creatinine [Mass ratio] 11 ratio Normal 7 - 27 ratio AO ADM SS WBC (Bld) [#/Vol] 16.3 103/mcL High 4.6 - 10.8 10^3/mcL AO Workflow SS LABORATORYOrdered By: Ilda Powell on 11-16-2023 Heterophile Ab LA Ql (S) Negative (11/16/23 5:18 PM) Normal Negative AO Rapid Testing SS MONOon 11-16-2023 Mononucleosis Negative Normal Negative [facility] ([place]) Comment on above: Performed By: #### C BC, ANEU, MDW, ADIFF, BMP, MONO, GFR #### [place] [address] LABORATORYOrdered By: Israel Crabtree on 03-14-2022 Albumin BCP dye [Mass/Vol] 3.5 G/dL Invalid Interpretation Code 3.5 - 5.0 G/dL AO ADM SS Albumin/Globulin [Mass ratio] 1.1 {ratio} Invalid Interpretation Code 1.1 - 2.5 ratio AO ADM SS ALP [Catalytic activity/Vol] 90 U/L Invalid Interpretation Code 40 - 135 U/L AO ADM SS ALT With P-5'-P [Catalytic activity/Vol] 21 U/L Invalid Interpretation Code 14 - 59 U/L AO ADM SS AST With P-5'-P [Catalytic activity/Vol] 13 U/L Invalid Interpretation Code 10 - 40 U/L AO ADM SS Bilirubin [Mass/Vol] 0.2 mg/dL Invalid Interpretation Code 0.2 - 1.0 mg/dL AO ADM SS Calcium [Mass/Vol] 8.4 mg/dL Invalid Interpretation Code 8.4 - 10.2 mg/dL AO ADM SS Chloride [Moles/Vol] 105 mmol/L Invalid Interpretation Code 98 - 107 mmol/L AO ADM SS CO2 [Moles/Vol] 26 mmol/L Invalid Interpretation Code 22 - 29 mmol/L AO ADM SS Creatinine [Mass/Vol] 0.95 mg/dL Invalid Interpretation Code 0.55 - 1.02 mg/dL AO ADM SS Electrolyte Balance 9.0 mEq/L Invalid Interpretation Code 4.0 - 15.0 mEq/L AO ADM SS Globulin 3.3 G/dL Invalid Interpretation Code AO ADM SS Glucose [Mass/Vol] 105 mg/dL Invalid Interpretation Code 70 - 105 mg/dL AO ADM SS Potassium [Moles/Vol] 4.5 mmol/L Invalid Interpretation Code 3.5 - 5.1 mmol/L AO ADM SS Protein [Mass/Vol] 6.8 G/dL Invalid Interpretation Code 6.4 - 8.2 G/dL AO ADM SS Sodium [Moles/Vol] 140 mmol/L Invalid Interpretation Code 136 - 145 mmol/L AO ADM SS TSH Qn 1.12 m[IU]/L Invalid Interpretation Code 0.36 - 3.74 mcIU/mL AO ADM SS Urea nitrogen [Mass/Vol] 13 mg/dL Invalid Interpretation Code 7 - 18 mg/dL AO ADM SS Urea nitrogen/Creatinine [Mass ratio] 14 ratio Invalid Interpretation Code 7 - 27 ratio AO ADM SS LABORATORYOrdered By: Xiomy Jones on 03-14-2022 Basophil, Absolute 0.1 103/mcL Invalid Interpretation Code 0.0 - 0.2 10^3/mcL AO Workflow SS Basophils/100 WBC (Bld) 1.0 % Invalid Interpretation Code 0.0 - 2.5 % AO Workflow SS Eosinophil, Absolute 0.2 103/mcL Invalid Interpretation Code 0.0 - 0.4 10^3/mcL AO Workflow SS Eosinophils/100 WBC (Bld) 3.1 % Invalid Interpretation Code 0.0 - 7.0 % AO Workflow SS Erythrocyte distribution width (RBC) [Ratio] 15.3 % Invalid Interpretation Code 11.5 - 14.5 % AO Workflow SS Hematocrit (Bld) [Volume fraction] 36.2 % Invalid Interpretation Code 37.0 - 47.0 % AO Workflow SS Hgb 11.9 G/dL Invalid Interpretation Code 12.0 - 16.0 G/dL AO Workflow SS Lymphocyte, Absolute 1.6 103/mcL Invalid Interpretation Code 0.8 - 3.9 10^3/mcL AO Workflow SS Lymphocytes/100 WBC (Bld) 24.8 % Invalid Interpretation Code 10.0 - 50.0 % AO Workflow SS MCH (RBC) [Entitic mass] 26.4 pg Invalid Interpretation Code 27.0 - 31.2 pg AO Workflow SS MCHC 33.0 G/dL Invalid Interpretation Code 33.0 - 37.0 G/dL AO Workflow SS MCV (RBC) [Entitic vol] 80.1 fL Invalid Interpretation Code 80.0 - 94.0 fL AO Workflow SS Monocyte, Absolute 0.6 103/mcL Invalid Interpretation Code 0.2 - 1.0 10^3/mcL AO Workflow SS Monocytes/100 WBC (Bld) 9.4 % Invalid Interpretation Code 1.7 - 13.0 % AO Workflow SS Neutrophil, Absolute 3.9 103/mcL Invalid Interpretation Code 2.9 - 6.2 10^3/mcL AO Workflow SS Neutrophils/100 WBC (Bld) 61.7 % Invalid Interpretation Code 37.0 - 80.0 % AO Workflow SS Platelet 329 103/mcL Invalid Interpretation Code 130 - 400 10^3/mcL AO Workflow SS Platelet mean volume (Bld) [Entitic vol] 8.3 fL Invalid Interpretation Code 7.4 - 10.4 fL AO Workflow SS RBC 4.52 106/mcL Invalid Interpretation Code 4.20 - 5.40 10^6/mcL AO Workflow SS WBC 6.3 103/mcL Invalid Interpretation Code 4.6 - 10.8 10^3/mcL AO Workflow SS LABORATORYOrdered By: SYSTEM SYSTEM on 03-14-2022 GFR 76 ml/min/1.73sqm Invalid Interpretation Code AO Chemistry S GFR Non- 63 ml/min/1.73sqm Invalid Interpretation Code AO Chemistry S Monocyte distribution width Auto (Bld) [Entitic vol] Not Performed 1 *NA* (03/14/22 11:42 AM) Invalid Interpretation Code 0.00 - 20.00 AO Hematology S Comment on above: Result Comment: MDW testing performed only on adult ER patients between the ages of 18-89 years. LABORATORYOrdered By: Ilda Powell on 08-02-2021 HCG ( test) Ql Negative (08/02/21 12:04 PM) Invalid Interpretation Code AO Manual Urine SS test (u) int Not detected Invalid Interpretation Code AO Manual Urine SS [facility] * * *Final Report* * * DATE OF EXAM: Jan 22 2021 1:26PM [id number] - [facility] / PROCEDURE REASON: Breast pain, left * * * * Physician Interpretation * * * * RESULT: #[id number] - [facility] #[id number] - [facility] US BREAST LTD LT BILATERAL DIGITAL DIAGNOSTIC MAMMOGRAM WITH CAD: 01/22/2021 HISTORY: Bilateral diagnostic // left mastalgia Breast Pain, Left. RESULT: TECHNIQUE: The study was acquired using full field digital technology and interpreted from soft copy. Current study was also evaluated with a Computer Aided Detection (CAD). No prior exams were available for comparison. The tissue of both breasts is heterogeneously dense. This may lower the sensitivity of mammography. No significant masses, calcifications, or other findings are seen in either breast. IMPRESSION: NEGATIVE There is no abnormality seen in the left breast to correspond with the pain, however, clinical correlation is recommended. There is no mammographic evidence of malignancy. LIMITED ULTRASOUND OF LEFT BREAST: 01/22/2021 RESULT: No prior exams were available for comparison. Real-time ultrasound of the left breast 9 o'clock region was performed. [place] scale images of the real-time examination were reviewed. IMPRESSION: NEGATIVE There is no sonographic evidence of malignancy. There is no abnormality seen in the left breast to correspond with the pain, however, clinical correlation is recommended. Return to annual mammogram screening schedule is recommended. Lynda no/mikie:01/22/2021 14:17:12 Multiple national specialty organizations have released breast cancer screening guidelines for women at average risk for developing breast cancer - guidelines that are based on both evidence and opinion, yet differ on when to start and how often to screen for breast cancer. With representation from Breast Imaging, Internal Medicine, Women's Health, Family Medicine, and Medical/Surgical Oncology, the [facility] has carefully reviewed the data and reached the following consensus: 1) All women should engage in shared decision-making with their providers to decide when to start and how often to screen; 2) All women should have the opportunity to start screening mammography at age 40; 3) For women ages 45-55, we recommend annual screening mammograms; 4) For women ages 55 and over, we support both the transition from an annual to a biennial interval if this aligns more with patient's values and preferences, or continuation with annual screening; 5) All women should discuss with their providers when to stop screening mammograms. Senior Geotechnical Engineer(s): Marguerite Camara, RT(R)(M), [facility]; Jenni Ashley, [facility] OVERALL STUDY BIRADS: 1 Negative Wood Treating Inspector: Mikie Transcribe Date/Time: Jan 22 2021 1:07P Dictated by: LYNDA OJEDA MD This examination was interpreted and the report reviewed and electronically signed by: LYNDA OJEDA MD on Jan 22 2021 2:17PM EST [id number] CN Normal [facility] US BREAST LTD LTon 01-22 [employer] US BREAST LTD LT * * *Final Report* * * DATE OF EXAM: Jan 22 2021 2:10PM [id number] - [employer] US BREAST LTD LT / PROCEDURE REASON: Breast pain, left * * * * Physician Interpretation * * * * #[id number] - [facility] #[id number] - [employer] US BREAST LTD LT BILATERAL DIGITAL DIAGNOSTIC MAMMOGRAM WITH CAD: 01/22/2021 HISTORY: Bilateral diagnostic // left mastalgia Breast Pain, Left. RESULT: TECHNIQUE: The study was acquired using full field digital technology and interpreted from soft copy. Current study was also evaluated with a Computer Aided Detection (CAD). No prior exams were available for comparison. The tissue of both breasts is heterogeneously dense. This may lower the sensitivity of mammography. No significant masses, calcifications, or other findings are seen in either breast. IMPRESSION: NEGATIVE There is no abnormality seen in the left breast to correspond with the pain, however, clinical correlation is recommended. There is no mammographic evidence of malignancy. LIMITED ULTRASOUND OF LEFT BREAST: 01/22/2021 RESULT: No prior exams were available for comparison. Real-time ultrasound of the left breast 9 o'clock region was performed. [place] scale images of the real-time examination were reviewed. IMPRESSION: NEGATIVE There is no sonographic evidence of malignancy. There is no abnormality seen in the left breast to correspond with the pain, however, clinical correlation is recommended. Return to annual mammogram screening schedule is recommended. Lynda no/mikie:01/22/2021 14:17:12 Multiple national specialty organizations have released breast cancer screening guidelines for women at average risk for developing breast cancer - guidelines that are based on both evidence and opinion, yet differ on when to start and how often to screen for breast cancer. With representation from Breast Imaging, Internal Medicine, Women's Health, Family Medicine, and Medical/Surgical Oncology, the [facility] has carefully reviewed the data and reached the following consensus: 1) All women should engage in shared decision-making with their providers to decide when to start and how often to screen; 2) All women should have the opportunity to start screening mammography at age 40; 3) For women ages 45-55, we recommend annual screening mammograms; 4) For women ages 55 and over, we support both the transition from an annual to a biennial interval if this aligns more with patient's values and preferences, or continuation with annual screening; 5) All women should discuss with their providers when to stop screening mammograms. Senior Geotechnical Engineer(s): Marguerite Camara RT(R)(M), [facility]; Jenni Ashley, [facility] OVERALL STUDY BIRADS: 1 Negative Wood Treating Inspector: Mikie Transcribe Date/Time: Jan 22 2021 1:07P Dictated by : LYNDA OJEDA MD This examination was interpreted and the report reviewed and electronically signed by: LYNDA OJEDA MD on Jan 22 2021 2:17PM EST [id number] CN Normal [facility] CNOVon 01-21-2021 CNOV Office Visit (OBGYWM) KARINA MAN ([id number]) 1975 F Date Time Provider Department 01/21/21 4:00 PM YAMILEX VOGEL OBGYWM During your visit today, we recorded the following information about you: Referring Provider: SELF [200] Allergies As of Date: 01/21/2021 Noted Allergy Reaction PERCOCET (OXYCODONE-ACETAMINO PHEN)01/09/2021 4 - Hives VICODIN (HYDROCODONE-ACETAMI NOPHE*01/09/2021 4 - Hives Date Reviewed: 01/09/2021 Reviewed by: Camelia Reynoso - Fully Assessed Reason for Visit: DUB [277] Primary Visit Diagnosis:DUB (dysfunctional uterine bleeding) [N93.8] Prescriptions as of 01/21/2021 Sig: OMEPRAZOLE 20 MG CAPSULE,MAME* Take 20 mg by mouth once jose* VENLAFAXINE ER 150 MG CAPSULE* Take 150 mg by mouth once bruno* VENLAFAXINE ER 75 MG CAPSULE,* Take 75 mg by mouth once jose* ARIPIPRAZOLE 2 MG TABLET Take 2 mg by mouth once daily. LORAZEPAM 1 MG TABLET Take 1 mg by mouth every 6 ho* Problem List As Of Date: 01/21/2021 (None) Encounter Status:Closed by YAMILEX VOGEL MD on 01/21/21 [facility] CNPNon 01-11-2021 CNPN Telephone (RDXWS) KARINA MAN ([id number]) 1975 F Date Time Provider Department 01/11/21 YAMILEX VOGEL RDXWS During your visit today, we recorded the following information about you: Emilie Nazario, Tech 01/11/2021 9:35 AM Signed Please change diagnosis. Encounter for screening mammogram for breast cancer [Z12.31] cannot be used for a diagnostic mammogram since this isn't a screening mammogram. Only need the diagnosis of pain. Thanks Nava Baez RN 01/11/2021 9:43 AM Signed Updated. Nava Baez RN Allergies As of Date: 01/11/2021 Noted Allergy Reaction PERCOCET (OXYCODONE-ACETAMINO PHEN)01/09/2021 4 - Hives VICODIN (HYDROCODONE-ACETAMI NOPHE*01/09/2021 4 - Hives Date Reviewed: 01/09/2021 Reviewed by: Camelia Reynoso - Fully Assessed Reason for Visit: Orders [681] Prescriptions as of 01/11/2021 Sig: OMEPRAZOLE 20 MG CAPSULE,MAME* Take 20 mg by mouth once jose* VENLAFAXINE ER 150 MG CAPSULE* Take 150 mg by mouth once bruno* VENLAFAXINE ER 75 MG CAPSULE,* Take 75 mg by mouth once jose* ARIPIPRAZOLE 2 MG TABLET Take 2 mg by mouth once daily. LORAZEPAM 1 MG TABLET Take 1 mg by mouth every 6 ho* Problem List As Of Date: 01/11/2021 (None) Encounter Status:Closed by NAVA BAEZ RN on 01/11/21 [facility] CNOVon 01-09-2021 CNOV Office Visit (OBGYWM) KARINA MAN ([id number]) 1975 F Date Time Provider Department 01/09/21 2:50 PM YAMILEX VOGEL OBCORTES During your visit today, we recorded the following information about you: Blood pressure Weight Height Last Period 120/80 119 kg 1.6 m 12/06/20 Yamilex Vogel MD 01/09/2021 4:54 PM Signed KARINA is a 45 year old No obstetric history on file. who presents for an annual gynecologic exam with complaints, irregular bleeding. Menses: Has had irregular cycles since menarche. Known history of PCOS. 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 Time with current partner: 30 History of PCOS: Yes Pain with intercourse: Yes - occasional Postcoital bleeding: Yes - spotting OB History No obstetric history on file. PAST MEDICAL HISTORY Diagnosis Date - Chronic sinusitis - Esophagitis - ALLY (generalized anxiety disorder) - PCOS (polycystic ovarian syndrome) PAST SURGICAL HISTORY Procedure Laterality Date - COLONOSCOPY GEN ANES 04/2020 - COLONOSCOPY GEN ANES 2013 - EGD 04/2020 - EGD 2013 - LIGATE FALLOPIAN TUBE 1996 - REPAIR ING HERNIA,5+Y/O,REDUCIB L 2013 - REVISE MEDIAN N/CARPAL TUNNEL SURG Right 2013 FAMILY HISTORY Problem Relation Age of Onset - Thyroid Mother - Thyroid Sister - other (epilepsy) Sister - Diabetes Sister - ADD/ADHD Brother - Ovarian cancer Maternal Grandmother - Prostate Cancer Maternal Grandfather SOCIAL HISTORY Social History Tobacco Use - Smoking status: Former Smoker - Smokeless tobacco: Never Used Vaping Use - Vaping Use: Never used Substance Use Topics - Alcohol use: Not Currently - Drug use: Not Currently REVIEW OF SYSTEMS Abdomen: No abdominal pain, nausea, vomiting, diarrhea, or constipation. No bloating, early satiety, indigestion, or increased flatulence. Bladder: No dysuria, gross hematuria, urinary frequency, urinary urgency, or incontinence. Breast: No breast lumps, nipple d/c, overlying skin changes, redness or skin retraction. +Left sided focal breast pain for several weeks Allergies and current medication updated:Yes EXAM: BP 120/80 Ht 5' 3 (1.60m) Wt 262 lb 6.4 oz (119.0kg) LMP 12/06/2020 BMI 46.49 kg/(m2). GENERAL: pleasant, female in no apparent distress HEENT: Normocephalic, atraumatic, mucus membranes moist and no lesions NECK: full range of motion DERMATOLOGY: Normal, without lesions, non-icteric and non-hirsute BREAST: soft, non-tender, symmetric, no dominant mass, normal nipple-areolar complex, no lymphadenopathy and no nipple discharge CHEST: Normal inspiratory effort ABDOMEN: soft, non-tender and no masses PELVIC: external genitalia normal, normal Bartholin's glands, urethra, [place]'s glands, no vulvar lesions, no cervical lesions, good vaginal support, physiologic discharge present, normal appearing perineal body and perianal region BIMANUAL: uterus normal size, shape and consistency, no adnexal masses and non-tender RECTOVAGINAL: deferred. NEURO: exam grossly non-focal EXTREMITIES: normal ASSESSMENT/PLAN: 1) Health maintenance: Pap done with HPV. Mammogram ordered. Persistent left sided breast pain that is focal. Normal exam today. Diagnostic mammogram and US ordered. Nutrition, exercise and routine health maintenance exams reviewed. DUB: Known h/o PCOS per patient. Recommend Mirena IUD. Will check pelvic US and EMB. Patient considering IUD. 2) Contraception: tubal sterilization. Contraceptive options reviewed and information provided. 3) STD screening: Declined STD check. 4) Follow up one year or sooner as needed DO Laura Henson Pss 01/17/2021 12:31 PM Signed Normal pap letter sent to patient. Laura Regalado Pss Referring Provider: SELF [[id number]] Allergies As of Date: 01/09/2021 Noted Allergy Reaction PERCOCET (OXYCODONE-ACETAMINO PHEN)01/09/2021 4 - Hives VICODIN (HYDROCODONE-ACETAMI NOPHE*01/09/2021 4 - Hives Date Reviewed: 01/09/2021 Reviewed by: Camelia Reynoso - Fully Assessed Reason for Visit: Well Woman [[id number]] Primary Visit Diagnosis:Encounter for gynecological examination (general) (routine) without abnormal findings [Z01.419] Other Visit Diagnoses:Screening for cervical cancer [Z12.4] Encounter for screening for human papillomavirus (HPV) [Z11.51] Encounter for screening mammogram for breast cancer [Z12.31] Irregular menses [N92.6] History of PCOS [Z87.42] Breast pain, left [N64.4] Order(s):PAP FLUID CERVICAL SCREENING [[id number]] Order #: [id number]. #:[id number] PELVIC US WHI [[id number]] Order # (more content not included)... Normal [facility] HPV w/Genotypeon 01-09-2021 HPV HighRisk Other Negative for HPV DNA high risk types: 31,33,35,39,45,51,52 ,56,58,59,66,68 by PCR. Normal [facility] Comment on above: Result Comment: This test was developed and its performance characteristics determined by [facility]'s [facility] ([facility]). It has not been cleared or approved by the FDA. [facility] is regulated under CLIA as qualified to perform high-complexity testing. This test is used for clinical purposes. It should not be regarded as investigational or for research. Performed By: #### H PVHRR #### [facility] [address] [id number] HPV HighRisk Type 16 Negative Normal [facility] Comment on above: Performed By: #### H PVHRR #### [facility] [address] [address] HPV HighRisk Type 18 Negative Normal [facility] Comment on above: Performed By: #### H PVHRR #### [id number] [id number] Initial Visit (Gastroenterol ogy)on 03-15-2020 Initial Visit (Gastroenterology) Diagnoses/Problems Health Maintenance/Risks Encounter for preventive health examination (V70.0) (Z00.00) Assessed Blood in stool (578.1) (K92.1) Dysphagia (787.20) (R13.10) Gastroesophageal reflux disease, esophagitis presence not specified (530.81) (K21.9) Gastroesophageal reflux disease (530.81) (K21.9) Abdominal pain (789.00) (R10.9) Exogenous obesity (278.00) (E66.09) Orders Blood in stool Start: PEG-3350/Electrolyte s 236 GM Oral Solution Reconstituted; TAKE DIRECTED Rx By: Doris Ceja; Dispense: 0 Days ; #:1 X 4000 ML Bottle; Refill: 0;For: Blood in stool; FLOYD = N; Verified Transmission to [facility] [facility]; Last Updated By: Alejo Fuentes; 03/15/2020 8:43:54 AM Colonoscopy; Status:Hold For - Scheduling; Requested for:15Mar2020; Perform:[facility]; Due:13Jun2020;Ordere d; For:Blood in stool; Ordered By:Doris Ceja; Patient competent to provide consent? : Yes-pt mentally competent to provide consent Dysphagia Endoscopy - Upper GI; Status:Hold For - Scheduling; Requested for:15Mar2020; Perform:[facility]; Due:[id number];Ordere d; For:Dysphagia; Ordered By:Doris Ceja; Patient competent to provide consent? : Yes-pt mentally competent to provide consent SocHx: Former smoker Tobacco Use Screening; Status:Complete; Done: 15Mar2020 Perform:Not Applicable;Ordered; For:SocHx: Former smoker; Ordered By:Daily Quan; Patient Discussion/Summary Recommendations: 1. I discussed the differential diagnosis 2. Colonoscopy was discussed 3. Procedure and sedation were discussed including but not limited to risk of bleeding, perforation and reaction to medication. The office endoscopy forms were reviewed and signed. The patient was instructed to bring someone to drive him home after the tests. All the patient's questions were answered. 4.Upper endoscopy with possible dilatation is recommended. The procedure and sedation were discussed including but not limited to risk of bleeding, perforation and reaction to medication. The office endoscopy forms were reviewed and signed. The patient was instructed to bring someone to drive home after the test. All the patient's questions were answered. 5. Given the patient's history of sleep apnea, appearance of her neck and obesity, we'll plan on scheduling the procedures at the hospital Provider Impressions Impression: 1. History of blood in stool 2. Chronic gastroesophageal reflux disease 3. Chronic dysphagia 4. Abdominal pain 5. Obesity, BMI 45 6. History of sleep apnea Chief Complaint A telephone visit (audio only) between the patient (at the originating site) and the provider (at the distant site) was utilized to provide this telehealth service. Verbal consent was requested and obtained from KARINA MAN on this date, 03/15/2020 08:30 AM , for a telehealth visit. Blood in stool History of Present [id number]-rtss-[id number] female is seen as a new patient for a history of intermittent blood in stool. He states that since October she has noticed intermittent bright red blood With the stool. This typically occurs when she has been more constipated or takes antibiotics. This seems to be sporadic. She has been using Benefiber for relief of her constipation. She has chronic nausea. She denies vomiting. There's been no weight loss. She denies anemia. There is no family history of colon cancer or polyps. Her last colonoscopy was 6 years ago which was performed for abdominal pain. She is on the have a hernia. She has had mid abdominal discomfort around her umbilicus for several months. This seems to increase before having a bowel movement and gets better with a bowel movement. She also admits to chronic heartburn and takes omeprazole. She has had dysphagia for several years. This seems to occur with solids and liquids. She has never undergone upper endoscopy. Review of Systems Constitutional: no fever and no chills. Denies weight loss Eyes: no eye pain and eyes not red. ENT: no lymphadenopathy and no nosebleeds. Cardiovascular: the heart rate was not slow and the heart rate was not fast. Occasional palpitations Respiratory: no wheezing and no cough. History of sleep apnea but insurance does not pay for apnea monitor Genitourinary: no dysuria and no incontinence. Musculoskeletal: no arthralgias and swelling of the hands and legs Integumentary: no rashes and no itching. Neurological: no confusion and no numbness. Admits to migraine headaches no seizures Psychiatric: not suicidal. Endocrine: no muscle weakness and no feelings of weakness. Hematologic/Lymphati c: no swollen glands and no swollen glands in the neck. Active Problems Problems Abdominal pain (789.00) (R10.9) Blood in stool (578.1) (K92.1) Dysphagia (787.20) (R13.10) Exogenous obesity (278.00) (E66.09) Gastroesophageal reflux disease (530.81) (K21.9) Gastroesophageal reflux disease, esophagitis presence not specified (530.81) (K21.9) Past Medical History Problems History of Anxiety and depression (300.00,311) (F41.9,F32.9) History of attention deficit disorder (V11.8) (Z86.59) History of sleep apnea (V13.89) (Z86.69) Surgical History Problems History of Carpal tunnel surgery History of Hernia repair History of Tubal ligation Family History Mother Family history of Alive and well No family history of Colon Cancer Father Family history of Alive and well No family history of Colon Cancer Child Family history of Alive and well No family history of Colon Cancer Sibling Family history of Alive and well No family history of Colon Cancer Social History Problems Caffeine use (V49.89) (Z78.9) Former smoker (V15.82) (Z87.891) History of body piercing (V45.89) (Z98.890) No alcohol use No illicit drug use Allergies Medication Percocet TABS Recorded By: Daily Quan; 03/15/2020 8:21:24 AM Vicodin ES TABS Recorded By: aDily Quan; 03/15/2020 8:21:24 AM Current Meds Medication NameInstruction LORazepam 1 MG Oral Tablet Omeprazole 20 MG Oral Capsule Delayed Release Venlafaxine HCl ER 150 MG Oral Tablet Extended Release 24 Hour Vitals Height 5 feet 3 inches weight 256 pounds BMI 45 Physical Exam Limited light telemedicine visit Awake and oriented, no dyspnea with conversation, no distress Results/Data No outside records for review Signatures Electronically signed by : Doris Ceja DO; Mar 15 2020 8:45AM EST (Author) Normal [facility] Vital Signs Date Time Vital Sign Value Performing Clinician Estelita marroquin 11-17-2023 15:55-0500 Body temperature 97.88 [degF] SHAD ASHFORD APRNAXS-One [facility] 11-17-2023 15:55-0500 Diastolic Blood Pressure Non-Invasive 61 mm[Hg] SHAD ASHFORD APRN-SALES AND MARKETING ENGINEER [facility] 11-17-2023 15:55-0500 Heart rate 74 /min SHAD ASHFORD APRN-SALES AND MARKETING ENGINEER [facility] 11-17-2023 15:55-0500 Reason For Taking VItal Signs SHAD ASHFORD APRN-SALES AND MARKETING ENGINEER [facility] 11-17-2023 15:55-0500 Respiratory rate 18 /min SHAD ASHFORD APRN-SALES AND MARKETING ENGINEER [facility] 11-17-2023 15:55-0500 Systolic Blood Pressure Non-Invasive 103 mm[Hg] SHAD ASHFORD APRN-SALES AND MARKETING ENGINEER [facility] 11-17-2023 10:49-0500 Body temperature 98.24 [degF] SHAD ASHFORD TABULATING CLERK-SALES AND MARKETING ENGINEER [facility] 11-17-2023 10:49-0500 Diastolic Blood Pressure Non-Invasive 65 mm[Hg] SHAD MADDENMando TABULATING CLERK-SALES AND MARKETING ENGINEER [facility] 11-17-2023 10:49-0500 Heart rate 82 /min SHAD MADDENMando TABULATING CLERK-SALES AND MARKETING ENGINEER [facility] 11-17-2023 10:49-0500 Reason For Taking VItal Signs SHAD MADDENMando TABULATING CLERK-SALES AND MARKETING ENGINEER [facility] 11-17-2023 10:49-0500 Respiratory rate 18 /min SHAD MADDENMando TABULATING CLERK-SALES AND MARKETING ENGINEER [facility] 11-17-2023 10:49-0500 Systolic Blood Pressure Non-Invasive 107 mm[Hg] SHAD ASHFROD TABULATING CLERK-SALES AND MARKETING ENGINEER [facility] 11-17-2023 06:59-0500 Body temperature 97.88 [degF] SHAD ASHFORD TABULATING CLERK-SALES AND MARKETING ENGINEER [facility] 11-17-2023 06:59-0500 Diastolic Blood Pressure Non-Invasive 68 mm[Hg] SHAD MADDENMando TABULATING CLERK-SALES AND MARKETING ENGINEER [facility] 11-17-2023 06:59-0500 Heart rate 80 /min SHAD MADDENMando TABULATING CLERK-SALES AND MARKETING ENGINEER [facility] 11-17-2023 06:59-0500 Respiratory rate 18 /min SHAD MADDENMando TABULATING CLERK-SALES AND MARKETING ENGINEER [facility] 11-17-2023 06:59-0500 Systolic Blood Pressure Non-Invasive 111 mm[Hg] SHAD MADDENMando TABULATING CLERK-SALES AND MARKETING ENGINEER [facility] 11-17-2023 04:07-0500 Heart rate 95 /min SHADELAINE MADDENN TABULATING CLERK-SALES AND MARKETING ENGINEER [facility] 11-17-2023 00:00-0500 Heart rate 87 /min SHADELAINE MADDENN TABULATING CLERK-SALES AND MARKETING ENGINEER [facility] 11-16-2023 21:57-0500 Body height 160 cm SHADELAINE MADDENN TABULATING CLERK-SALES AND MARKETING ENGINEER [facility] 11-16-2023 21:57-0500 Body weight 122.7 kg SHADELAINE MADDENN TABULATING CLERK-SALES AND MARKETING ENGINEER [facility] 11-16-2023 21:57-0500 Body weight 47.93 kg/m2 SHADELAINE HENRYNEN TABULATING CLERK-SALES AND MARKETING ENGINEER [facility] 11-16-2023 21:10-0500 Heart rate 89 /min SHADELAINE HENRYNEN TABULATING CLERK-SALES AND MARKETING ENGINEER [facility] 11-16-2023 20:12-0500 Heart rate 92 /min SHADELAINE HENRYNEN TABULATING CLERK-SALES AND MARKETING ENGINEER [facility] 11-16-2023 18:11-0500 Heart rate 104 /min SHADELAINE HENRYNEN TABULATING CLERK-SALES AND MARKETING ENGINEER [facility] 11-16-2023 16:19-0500 Body weight 122.7 kg SHADELAINE MADDENN TABULATING CLERK-SALES AND MARKETING ENGINEER [facility] 08-02-2021 14:06-0400 Diastolic Blood Pressure NBP [address] AMBIKA ARSHAD MD [facility] 08-02-2021 14:06-0400 Heart rate 80 /min DR AMBIKA ARSHAD MD [facility] 08-02-2021 14:06-0400 Respiratory rate 13 /min DR AMBIKA ARSHAD MD [facility] 08-02-2021 14:06-0400 Systolic Blood Pressure NBP [address] AMBIKA ARSHAD MD [facility] 08-02-2021 13:57-0400 Body temperature 98.06 [degF] DR AMBIKA ARSHAD MD [facility] 08-02-2021 13:57-0400 Diastolic Blood Pressure NBP [address] AMBIKA ARSHAD MD [facility] 08-02-2021 13:57-0400 Heart rate 80 /min DR AMBIKA ARSHAD MD [facility] 08-02-2021 13:57-0400 Respiratory rate 15 /min DR AMBIKA ARSHAD MD [facility] 08-02-2021 13:57-0400 Systolic Blood Pressure NBP [address] AMBIKA ARSHAD MD [facility] 08-02-2021 13:50-0400 Diastolic Blood Pressure NBP [address] AMBIKA ARSHAD MD [facility] 08-02-2021 13:50-0400 Heart rate 86 /min DR AMBIKA ARSHAD MD [facility] 08-02-2021 13:50-0400 Respiratory rate 16 /min DR AMBIKA ARSHAD MD [facility] 08-02-2021 13:50-0400 Systolic Blood Pressure NBP [address] AMBIKA ARSHAD MD [facility] 08-02-2021 12:15-0400 Body height [address] AMBIKA ARSHAD MD [facility] 08-02-2021 12:15-0400 Body weight 128.[address] AMBIKA ARSHAD MD [facility] 08-02-2021 12:08-0400 Body temperature 98.06 [degF] DR AMBIKA ARSHAD MD [facility] 08-02-2021 12:08-0400 Heart rate 83 /min DR AMBIKA ARSHAD MD [facility] 07-26-2021 10:20-0400 Body height [address] AMBIKA ARSHAD MD [facility] 07-26-2021 10:20-0400 Body weight 128.[address] AMBIKA ARSHAD MD [facility] 07-26-2021 10:20-0400 Body weight 50.2 kg/m2 DR AMBIKA ARSHAD MD [facility] 07-26-2021 10:20-0400 diastolic 82 mm[Hg] DR AMBIKA ARSHAD MD [facility] 07-26-2021 10:20-0400 Heart rate 89 /min DR AMBIKA ARSHAD MD [facility] 07-26-2021 10:20-0400 systolic 124 mm[Hg] DR AMBIKA ARSHAD MD [facility] Encounters Encounter Date Encounter Type Care Provider Facility Start: 11-16-2023 End: 11-17-2023 ambulatory BRANDEN ALEXUS Facility:B Start: 11-16-2023 End: 11-17-2023 Observation SHAD ASHFORD TABULATING CLERK-SALES AND MARKETING ENGINEER [facility] Start: 02-26-2023 End: 03-03-2023 ambulatory GEOFFREYLUIS ALFREDO TABULATING CLERK-SALES AND MARKETING ENGINEER Facility:[facility] Start: 03-14-2022 End: 03-14-2022 Patient encounter procedure BRANDEN VAUGHAN DO [facility] Start: 08-02-2021 End: 08-02-[address] AMBIKA ARSHDA MD [facility] Start: 07-26-2021 End: 07-26-[address] AMBIKA ARSHAD MD [facility] Procedures Date Procedure Procedure Detail Performing Clinician Colonoscopy DR AMBIKA Tatum MD Decompression of median nerve DR AMBIKA ARSHAD MD Comment on above: RIGHT Esophagogastroduodenoscopy Monty ARSHAD MD Herniated structure (morphologic abnormality) DR AMBIKA ARSHAD MD Comment on above: UMBILICAL Ligation of fallopian tube Monty ARSHAD MD Immunizations Immunization Date Immunization Notes Care Provider [facility] 11-17-2023 influenza, injectabl e, quadrivalent, preservative free SHAD ASHFORD TABULATING CLERK-SALES AND MARKETING ENGINEER [facility] 09-14-2020 influenza virus vaccine, unspecified formulation DR AMBIKA ARSHAD MD [facility] Comment on above: Result Comment: [facility] 08-06-2019 influenza virus vaccine, unspecified formulation DR AMBIKA ARSHAD MD [facility] Comment on above: Result Comment: [facility] 07-18-2016 influenza virus vaccine, unspecified formulation DR AMBIKA ARSHAD MD [facility] 06-05-2015 influenza virus vaccine, unspecified formulation DR AMBIKA ARSHAD MD [facility] 04-18-2014 tetanus and diphther ia toxoids, adsorbed, preservative free, for adult use (2 Lf of tetanus toxoid and 2 Lf of diphtheria toxoid) DR AMBIKA ARSHAD MD [facility] Payers Date Payer Category Payer Unknown [id number] 2023 Self-pay 1975 Unknown [id number] 1975 Unknown [id number] Social History Date Type Detail Facility Start: 07-15-2019 Never smoked t obacco (finding) [facility] Sex Assigned At Female [facility] Functional Status Date Assessment Result Facility 11-17-2023 Functional Status Door open, Room check performed [facility] 11-17-2023 Functional Status [facility] 11-17-2023 Functional Status [facility] 11-17-2023 Functional Status [facility] 11-17-2023 Functional Status Multilevel home [facility] 11-17-2023 Functional Status [facility] 11-16-2023 Functional Status Sensory Deficits None A [facility] Mental Status Date Assessment Result Facility 11-17-2023 Mental Status Oriented x 4 [facility] 11-17-2023 Mental Status [facility] 11-16-2023 Mental Status [facility] Clinical Notes 01-09-2021 to 11-17-2023 Note Date & Type Note Facility 11-17-2023 Hospital Discharge instructions Patient Education 11/17/2023 16:20:02 Strep Throat, Adult, Lycn-gy-Ibcb Strep Throat, Adult Strep throat is an infection of the throat. It is caused by germs (bacteria). Strep throat is common during the cold months of the year. It mostly affects children who are 5 15 years old. However, people of all ages can get it at any time of the year. When strep throat affects the tonsils, it is called tonsillitis. When it affects the back of the throat, it is called pharyngitis. This infection spreads from person to person through coughing, sneezing, or having close contact. What are the causes? This condition is caused by the Streptococcus pyogenes germ. What increases the risk? You are more likely to develop this condition if: You care for young children. Children are more likely to get strep throat and may spread it to others. You go to crowded places. Germs can spread easily in such places. You kiss or touch someone who has strep throat. What are the signs or symptoms? Symptoms of this condition include: Fever or chills. Redness, swelling, or pain in the tonsils or throat. Pain or trouble when swallowing. White or yellow spots on the tonsils or throat. Tender glands in the neck and under the jaw. Bad breath. Red rash all over the body. This is rare. How is this treated? This condition may be treated with: Medicines that kill germs (antibiotics). Medicines that treat pain or fever. These include: ?Ibuprofen or acetaminophen. ?Aspirin, only for patients who are over the age of 18. ?Throat lozenges. ?Throat sprays. Follow these instructions at home: Medicines Take bjsa-wyf-seouups and prescription medicines only as told by your doctor. Take your antibiotic medicine as told by your doctor. Do not stop taking the antibiotic even if you start to feel better. Eating and drinking If you have trouble swallowing, eat soft foods until your throat feels better. Drink enough fluid to keep your pee (urine) pale yellow. To help with pain, you may have: ?Warm fluids, such as soup and tea. ?Cold fluids, such as frozen desserts or popsicles. General instructions Rinse your mouth (gargle) with a salt-water mixture 3 4 times a day or as needed. To make a salt-water mixture, dissolve 1 tsp (3 6 g) of salt in 1 cup (237 mL) of warm water. Rest as much as you can. Stay home from work or school until you have been taking antibiotics for 24 hours. Avoid smoking or being around people who smoke. Keep all follow-up visits as told by your doctor. This is important. How is this prevented? Do not share food, drinking cups, or personal items. They can cause the germs to spread. Wash your hands well with soap and water. Make sure that all people in your house wash their hands well. Have family members tested if they have a fever or a sore throat. They may need an antibiotic if they have strep throat. Contact a doctor if: You have swelling in your neck that keeps getting bigger. You get a rash, cough, or earache. You cough up a thick fluid that is green, yellow-brown, or bloody. You have pain that does not get better with medicine. Your symptoms get worse instead of getting better. You have a fever. Get help right away if: You vomit. You have a very bad headache. Your neck hurts or feels stiff. You have chest pain or are short of breath. You have drooling, very bad throat pain, or changes in your voice. Your neck is swollen, or the skin gets red and tender. Your mouth is dry, or you are peeing less than normal. You keep feeling more tired or have trouble waking up. Your joints are red or painful. Summary Strep throat is an infection of the throat. It is caused by germs (bacteria). This infection can spread from person to person through coughing, sneezing, or having close contact. Take your medicines, including antibiotics, as told by your doctor. Do not stop taking the antibiotic even if you start to feel better. To prevent the spread of germs, wash your hands well with soap and water. Have others do the same. Do not share food, drinking cups, or personal items. Get help right away if you have a bad headache, chest pain, shortness of breath, a stiff or painful neck, or you vomit. This information is not intended to replace advice given to you by your health care provider. Make sure you discuss any questions you have with your health care provider. Document Released: 03/16/2009 Document Revised: 12/16/2019 Document Reviewed: 12/16/2019 [employer] Patient Education 2020 [employer]. 11/17/2023 16:19:48 Tonsillitis, Ydqh-cz-Cdvb Tonsillitis Tonsillitis is an infection of the throat. This infection causes the tonsils to become red, tender, and swollen. Tonsils are tissues in the back of your throat. If bacteria caused your infection, antibiotic medicine will be given to you. Sometimes, symptoms of this infection can be treated with the use of medicines that lessen swelling (steroids). If your tonsillitis is very bad (severe) and happens often, you may need to get your tonsils removed (tonsillectomy). Follow these instructions at home: Medicines Take zobc-enm-cwwqtvn and prescription medicines only as told by your doctor. If you were prescribed an antibiotic, take it as told by your doctor. Do not stop taking the antibiotic even if you start to feel better. Eating and drinking Drink enough fluid to keep your pee (urine) clear or pale yellow. While your throat is sore, eat soft or liquid foods like: ?Soup. ?Sherbert. ?Instant breakfast drinks. Drink warm fluids. Eat frozen ice pops. General instructions Rest as much as possible and get plenty of sleep. Gargle with a salt-water mixture 3 4 times a day or as needed. To make a salt-water mixture, completely dissolve -1 tsp of salt in 1 cup of warm water. Wash your hands often with soap and water. If there is no soap and water, use hand shelter supervisor. Do not share cups, bottles, or other utensils until your symptoms are gone. Do not smoke. If you need help quitting, ask your doctor. Keep all follow-up visits as told by your doctor. This is important. Contact a doctor if: You have large, tender lumps in your neck. You have a fever that does not go away after 2 3 days. You have a rash. You cough up green, yellow-brown, or bloody fluid. You cannot swallow liquids or food for 24 hours. Only one of your tonsils is swollen. Get help right away if: You have any new symptoms such as: ?Vomiting. ?Very bad headache. ?Stiff neck. ?Chest pain. ?Trouble breathing or swallowing. You have very bad throat pain and you also have drooling or voice changes. You have very bad pain that is not helped by medicine. You cannot fully open your mouth. You have redness, swelling, or severe pain anywhere in your neck. Summary Tonsillitis causes your tonsils to be red, tender, and swollen. While your throat is sore, eat soft or liquid foods. Gargle with a salt-water mixture 3 4 times a day or as needed. Do not share cups, bottles, or other utensils until your symptoms are gone. This information is not intended to replace advice given to you by your health care provider. Make sure you discuss any questions you have with your health care provider. Document Released: 03/16/2009 Document Revised: 09/10/2018 Document Reviewed: 11/03/2017 [employer] Patient Education 2020 [employer]. Follow Up Care 11/16/2023 16:20:09 With:Follow up with primary care provider Address: When:3-5 days [facility] 11-17-2023 Note Discharge Instructions Thank you for allowing [facility] to assist you with your healthcare needs. The following is important discharge information regarding your hospital visit. Your Care Team [facility] Your Diagnosis Acute sinusitis Throat pain - Complicated Tonsillitis What to do next Instructions From Your Doctor You are admitted for tonsillitis. You were treated with IV antibiotics. You will be discharged with a prescription for Augmentin. You may take naproxen and extra strength Tylenol for pain and swelling. Additionally on your CT scan there was a nodule that will require an ultrasound. Please discuss this with your PCP. Follow Up Appointments Follow Up with Follow up with primary care provider When Within 3-5 days Where: The Following Activity and Diet Have Been Ordered for You Discharge Activity - Ordered -- Resume your pre-hospitalization activity, 11/17/23 16:08:00 EST Discharge Diet - Ordered -- Liquid or soft diet depending on what she can tolerate. Advance as tolerated as swelling improves., 11/17/23 16:08:00 EST Allergies Latex Neurontin (serotonin syndrome) Percocet 5/325 Valium (Tachycardia) Vicodin Immunizations This Visit Given Vaccine Dateinfluenza virus vaccine, inactivated 11/17/2023 Medications Please ask your primary doctor or pharmacist before taking any other medication not listed, including over the counter drugs, herbal medications, vitamins and or supplements as they may interact with your home medications. What How Much When Why Instructions Last Dose New amoxicillin-clavulanate (amoxicillin-clavulanate 875 mg-125 mg oral tablet) 1 tab(s) by mouth Every 12 hours Duration: 7 Days Pickup at [id number] Unchanged albuterol (albuterol MDI (90 mcg/ inh) CFC free inhalation aerosol) 2 puff(s) by inhalation Every 4 hours as needed for as needed for wheezing Shortness of breath with exposure to COVID-19 virus Unchanged ammonium lactate topical (ammonium lactate 12% topical cream) 1 application Topical Two (2) times a day as needed for Dry skin Dry skin Unchanged diphenhydrAMINE (Benadryl 25 mg oral capsule) 1 cap by mouth Three (3) times a day as needed for for allergy symptoms Unchanged fluticasone nasal (Flonase 50 mcg/ inh nasal spray) 1 spray(s) each nostril Two (2) times a day Acute sinusitis Unchanged hydrochlorothiazide-triamterene (hydrochlorothiazide-triamterene 25 mg-37.5 mg oral tablet) 1 tab(s) by mouth Once a day as needed for Swelling Pedal edema Unchanged LORazepam (LORazepam 1 mg oral tablet) 1 tab(s) by mouth Every 6 hours as needed for as needed for anxiety Chronic anxiety Duration: 30 Days Unchanged omeprazole (NF) (omeprazole 10 mg oral delayed release capsule (NF)) 1 cap by mouth Once a day before a meal Unchanged QUEtiapine (QUEtiapine 25 mg oral tablet) As needed for Sleep take 1 to 3 tablets by mouth at bedtime Unchanged topiramate (topiramate 25 mg oral tablet) 3 tab(s) by mouth Once a day Pharmacy Information [id number]: [address] [place] [id number] [phone] Please take this list to your next doctor s visit. Bring all medications you take, including over the counter medications, herbals and other supplements with you to your doctor s visit. Patients and families are reminded to discard old lists and to update any records with all medication providers or retail pharmacies. Medication Leaflets amoxicillin and clavulanate potassium (am OK i KELLEN in KLAV ue DAVID ate chano TAS ee um) Augmentin What is the most important information I should know about amoxicillin and clavulanate potassium? You should not use this medicine if you have severe kidney disease, if you have had liver problems or jaundice while taking amoxicillin and clavulanate potassium, or if you are allergic to any penicillin or cephalosporin antibiotic, such as Amoxil, Ceftin, Cefzil, Moxatag, Omnicef, and others. What is amoxicillin and clavulanate potassium? Amoxicillin is a penicillin antibiotic. Clavulanate potassium helps prevent certain bacteria from becoming resistant to amoxicillin. Amoxicillin and clavulanate potassium is a combination medicine used to treat many different infections caused by bacteria, such as sinusitis, pneumonia, ear infections, bronchitis, urinary tract infections, and infections of the skin. Amoxicillin and clavulanate potassium may also be used for purposes not listed in this medication guide. What should I discuss with my healthcare provider before taking amoxicillin and clavulanate potassium? You should not use this medicine if you are allergic to it, or if: you have severe kidney disease (or if you are on dialysis); you have had liver problems or jaundice while taking amoxicillin and clavulanate potassium; or you are allergic to any penicillin or cephalosporin antibiotic, such as Amoxil, Ceftin, Cefzil, Moxatag, Omnicef, and others. Tell your doctor if you have ever had: liver disease (hepatitis or jaundice); kidney disease; or mononucleosis. The liquid or chewable tablet may contain phenylalanine. Tell your doctor if you have phenylketonuria (PKU). Tell your doctor if you are or . Amoxicillin and clavulanate potassium can make control pills less effective. Ask your doctor about using a non-hormonal control (condom, diaphragm, cervical cap, or contraceptive sponge) to prevent . Do not give this medicine to a child without medical advice. How should I take amoxicillin and clavulanate potassium? Follow all directions on your prescription label and read all medication guides or instruction sheets. Use the medicine exactly as directed. Amoxicillin and clavulanate potassium may work best if you take it at the start of a meal. Take the medicine every 12 hours. Do not crush or chew the extended-release tablet. Swallow the pill whole, or break the pill in half and take both halves one at a time. Tell your doctor if you have trouble swallowing a whole or half pill. You must chew the chewable tablet before you swallow it. Shake the oral suspension (liquid) before you measure a dose. Use the dosing syringe provided, or use a medicine dose-measuring device (not a kitchen spoon). This medicine can affect the results of certain medical tests. Tell any doctor who treats you that you are using amoxicillin and clavulanate potassium. Use this medicine for the full prescribed length of time, even if your symptoms quickly improve. Skipping doses can increase your risk of infection that is resistant to medication. Amoxicillin and clavulanate potassium will not treat a viral infection such as the flu or a common cold. Store the tablets at room temperature away from moisture and heat. Store the liquid in the refrigerator. Throw away any unused liquid after 10 days. What happens if I miss a dose? Take the medicine as soon as you can, but skip the missed dose if it is almost time for your next dose. Do not take two doses at one time. What happens if I overdose? Seek emergency medical attention or call the Poison Help line at . Overdose can cause nausea, vomiting, stomach pain, diarrhea, skin rash, drowsiness, hyperactivity, and decreased urination. What should I avoid while taking amoxicillin and clavulanate potassium? Avoid taking this medicine together with or just after eating a high-fat meal. This will make it harder for your body to absorb the medication. Antibiotic medicines can cause diarrhea, which may be a sign of a new infection. If you have diarrhea that is watery or bloody, call your doctor before using anti-diarrhea medicine. What are the possible side effects of amoxicillin and clavulanate potassium? Get emergency medical help if you have signs of an allergic reaction (hives, difficult breathing, swelling in your face or throat) or a severe skin reaction (fever, sore throat, burning eyes, skin pain, red or purple skin rash with blistering and peeling). Stop using amoxicillin and clavulanate potassium and seek medical treatment if you have a serious drug reaction that can affect many parts of your body. Symptoms may include skin rash, fever, swollen glands, muscle aches, severe weakness, unusual bruising, or yellowing of your skin or eyes. Call your doctor at once if you have: severe stomach pain, diarrhea that is watery or bloody (even if it occurs months after your last dose); pale or yellowed skin, dark colored urine, fever, confusion or weakness; loss of appetite, upper stomach pain; little or no urination; or easy bruising or bleeding. Common side effects may include: nausea, vomiting; diarrhea; rash, itching; vaginal itching or discharge; or diaper rash. This is not a complete list of side effects and others may occur. Call your doctor for medical advice about side effects. You may report side effects to FDA at 2-069-NAC-5576. What other drugs will affect amoxicillin and clavulanate potassium? Tell your doctor about all your other medicines, especially: allopurinol; probenecid; or a blood thinner--warfarin, Coumadin, Jantoven. This list is not complete. Other drugs may affect amoxicillin and clavulanate potassium, including prescription and kqqe-npi-syuftyh medicines, vitamins, and herbal products. Not all possible drug interactions are listed here. Where can I get more information? Your doctor or pharmacist can provide more information about amoxicillin and clavulanate potassium. Remember, keep this and all other medicines out of the reach of children, never share your medicines with others, and use this medication only for the indication prescribed. Every effort has been made to ensure that the information provided by [employer]. ('[employer]') is accurate, up-to-date, and complete, but no guarantee is made to that effect. Drug information contained herein may be time sensitive. [employer] information has been compiled for use by healthcare practitioners and consumers in the [place] and therefore [employer] does not warrant that uses outside of the [place] are appropriate, unless specifically indicated otherwise. [employer]'s drug information does not endorse drugs, diagnose patients or recommend therapy. [employer] drug information is an informational resource designed to assist licensed healthcare practitioners in caring for their patients and/or to serve consumers viewing this service as a supplement to, and not a substitute for, the expertise, skill, knowledge and judgment of healthcare practitioners. The absence of a warning for a given drug or drug combination in no way should be construed to indicate that the drug or drug combination is safe, effective or appropriate for any given patient. [employer] does not assume any responsibility for any aspect of healthcare administered with the aid of information [employer] provides. The information contained herein is not intended to cover all possible uses, directions, precautions, warnings, drug interactions, allergic reactions, or adverse effects. If you have questions about the drugs you are taking, check with your doctor, nurse or pharmacist. Copyright 3403-3336 [employer]. Version: 14.01. Revision Date: 07/18/2022. influenza virus vaccine (injection) (IN floo EN za VYE doc ROSANNAK seen) Afluria PF Quadrivalent , Afluria Quadrivalent , Fluad Quadrivalent PF , Fluarix PF Quadrivalent , Flublok Quadrivalent , Flucelvax PF Quadrivalent , Flucelvax Quadrivalent , FluLaval PF Quadrivalent , Fluzone High-Dose Quadrivalent PF , Fluzone PF Quadrivalent , Fluzone Quadrivalent What is the most important information I should know about this vaccine? Influenza virus vaccine is made from 'killed viruses' and will not cause you to become ill with the flu virus. What is influenza virus vaccine? Influenza virus ('the flu') is a contagious disease caused by a virus that can spread from one person to another through the air or on surfaces. Flu symptoms include fever, chills, tiredness, aches, sore throat, cough, vomiting, and diarrhea. The flu can also cause sinus infections, ear infections, bronchitis, or serious complications such as pneumonia. Influenza causes thousands of deaths each year, and hundreds of thousands of hospitalizations. Influenza is most dangerous in children, women, older adults, and people with weak immune systems or health problems such as diabetes, heart disease, or cancer. Influenza virus vaccine is for use in adults and children at least 6 months old, to prevent infection caused by influenza virus. This vaccine helps your body develop immunity to the disease, but will not treat an active infection you already have. Influenza virus vaccine is redeveloped each year to contain specific strains of inactivated (killed) flu virus that are recommended by public health officials for that year. The injectable influenza virus vaccine (flu shot) is made from 'killed viruses.' Influenza virus vaccine is also available in a nasal spray form, which is a 'live virus' vaccine. This medication guide addresses only the injectable form of this vaccine. Like any vaccine, influenza virus vaccine may not provide protection from disease in every person. What should I discuss with my healthcare provider before receiving this vaccine? You may not be able to receive this vaccine if you are allergic to eggs, or if you have ever had a severe allergic reaction to a flu vaccine. Tell your vaccination provider if you have: a weak immune system (caused by disease or by using certain medicine); or a history of Guillain-[place] syndrome (within 6 weeks after receiving a flu vaccine). You can still receive a vaccine if you have a minor cold. In the case of a more severe illness with a fever or any type of infection, wait until you get better before receiving this vaccine. Tell your vaccination provider if you are or . The Centers for Disease Control and Prevention recommends that women get a flu shot during any trimester of to protect themselves and their babies from flu. The nasal spray form of influenza vaccine is not recommended for use in women. How is this vaccine given? Some brands of this vaccine are made for use in adults and not in children. Your child's vaccination provider can recommend the best influenza virus vaccine for your child. This vaccine is given as an injection (shot) into a muscle. Children 6 months to 8 years old may need a second flu shot 4 weeks after receiving the first vaccine. The influenza virus vaccine is usually given in July or August. Follow your doctor's instructions or the schedule recommended by your local health department. Since the influenza virus vaccine is redeveloped each year for specific strains of influenza, you should receive a flu vaccine every year. What happens if I miss a dose? Call your doctor if you forget to receive your yearly flu shot in July or August, or if your child misses a booster dose. What happens if I overdose? An overdose of this vaccine is unlikely to occur. What should I avoid before or after receiving this vaccine? Follow your vaccination provider's instructions about any restrictions on food, beverages, or activity. What are the possible side effects of influenza virus vaccine? Get emergency medical help if you have signs of an allergic reaction: hives; difficulty breathing; swelling of your face, lips, tongue, or throat. You should not receive a booster vaccine if you had a life threatening allergic reaction after the first shot. Keep track of any and all side effects you have. If you receive an influenza virus vaccine in the future, you will need to tell the vaccination provider if the previous shot caused any side effects. Influenza virus vaccine is made from 'killed viruses' and will not cause you to become ill with the flu virus. You may have flu-like symptoms at any time during flu season that may be caused by other strains of influenza virus. Call your doctor at once if you have: a light-headed feeling, like you might pass out; severe weakness or unusual feeling in your arms and legs; numbness, pain, tingling, burning or prickly feeling; vision or hearing problems; or a fever higher than 101 degrees F. Common side effects may include: pain, redness, tenderness, swelling, bruising, or a hard lump where the shot was given; diarrhea, loss of appetite; muscle pain; headache, tiredness; or fussiness, crying, or drowsiness in a child. This is not a complete list of side effects and others may occur. Call your doctor for medical advice about side effects. You may report vaccine side effects to the Department of Health and Human Services at . What other drugs will affect influenza virus vaccine? If you are using any of these medications, you may not be able to receive the vaccine, or may need to wait until the other treatments are finished: steroid medicine; medications to treat psoriasis, rheumatoid arthritis, or other autoimmune disorders; or medicines to treat or prevent organ transplant rejection. This list is not complete. Other drugs may affect influenza virus vaccine, including prescription and ltow-weo-nbygjgu medicines, vitamins, and herbal products. Not all possible drug interactions are listed here. Where can I get more information? Your vaccination provider, pharmacist, or doctor can provide more information about this vaccine. Additional information is available from your local health department or the Centers for Disease Control and Prevention. Remember, keep this and all other medicines out of the reach of children, never share your medicines with others, and use this medication only for the indication prescribed. Every effort has been made to ensure that the information provided by [employer]') is accurate, up-to-date, and complete, but no guarantee is made to that effect. Drug information contained herein may be time sensitive. [employer] information has been compiled for use by healthcare practitioners and consumers in the [place] and therefore [employer] does not warrant that uses outside of the [place] are appropriate, unless specifically indicated otherwise. [employer] drug information does not endorse drugs, diagnose patients or recommend therapy. [employer] drug information is an informational resource designed to assist licensed healthcare practitioners in caring for their patients and/or to serve consumers viewing this service as a supplement to, and not a substitute for, the expertise, skill, knowledge and judgment of healthcare practitioners. The absence of a warning for a given drug or drug combination in no way should be construed to indicate that the drug or drug combination is safe, effective or appropriate for any given patient. [employer] does not assume any responsibility for any aspect of healthcare administered with the aid of information [email or web address] provides. The information contained herein is not intended to cover all possible uses, directions, precautions, warnings, drug interactions, allergic reactions, or adverse effects. If you have questions about the drugs you are taking, check with your doctor, nurse or pharmacist. Copyright 4260-1783 [employer]. Version: 09.11. Revision Date: 05/13/2023. Education Materials Strep Throat, Adult Strep throat is an infection of the throat. It is caused by germs (bacteria). Strep throat is common during the cold months of the year. It mostly affects children who are 5 15 years old. However, people of all ages can get it at any time of the year. When strep throat affects the tonsils, it is called tonsillitis. When it affects the back of the throat, it is called pharyngitis. This infection spreads from person to person through coughing, sneezing, or having close contact. What are the causes? This condition is caused by the Streptococcus pyogenes germ. What increases the risk? You are more likely to develop this condition if: You care for young children. Children are more likely to get strep throat and may spread it to others. You go to crowded places. Germs can spread easily in such places. You kiss or touch someone who has strep throat. What are the signs or symptoms? Symptoms of this condition include: Fever or chills. Redness, swelling, or pain in the tonsils or throat. Pain or trouble when swallowing. White or yellow spots on the tonsils or throat. Tender glands in the neck and under the jaw. Bad breath. Red rash all over the body. This is rare. How is this treated? This condition may be treated with: Medicines that kill germs (antibiotics). Medicines that treat pain or fever. These include: ? Ibuprofen or acetaminophen. ? Aspirin, only for patients who are over the age of 18. ? Throat lozenges. ? Throat sprays. Follow these instructions at home: Medicines Take berq-tyj-wupgwew and prescription medicines only as told by your doctor. Take your antibiotic medicine as told by your doctor. Do not stop taking the antibiotic even if you start to feel better. Eating and drinking If you have trouble swallowing, eat soft foods until your throat feels better. Drink enough fluid to keep your pee (urine) pale yellow. To help with pain, you may have: ? Warm fluids, such as soup and tea. ? Cold fluids, such as frozen desserts or popsicles. General instructions Rinse your mouth (gargle) with a salt-water mixture 3 4 times a day or as needed. To make a salt-water mixture, dissolve 1 tsp (3 6 g) of salt in 1 cup (237 mL) of warm water. Rest as much as you can. Stay home from work or school until you have been taking antibiotics for 24 hours. Avoid smoking or being around people who smoke. Keep all follow-up visits as told by your doctor. This is important. How is this prevented? Do not share food, drinking cups, or personal items. They can cause the germs to spread. Wash your hands well with soap and water. Make sure that all people in your house wash their hands well. Have family members tested if they have a fever or a sore throat. They may need an antibiotic if they have strep throat. Contact a doctor if: You have swelling in your neck that keeps getting bigger. You get a rash, cough, or earache. You cough up a thick fluid that is green, yellow-brown, or bloody. You have pain that does not get better with medicine. Your symptoms get worse instead of getting better. You have a fever. Get help right away if: You vomit. You have a very bad headache. Your neck hurts or feels stiff. You have chest pain or are short of breath. You have drooling, very bad throat pain, or changes in your voice. Your neck is swollen, or the skin gets red and tender. Your mouth is dry, or you are peeing less than normal. You keep feeling more tired or have trouble waking up. Your joints are red or painful. Summary Strep throat is an infection of the throat. It is caused by germs (bacteria). This infection can spread from person to person through coughing, sneezing, or having close contact. Take your medicines, including antibiotics, as told by your doctor. Do not stop taking the antibiotic even if you start to feel better. To prevent the spread of germs, wash your hands well with soap and water. Have others do the same. Do not share food, drinking cups, or personal items. Get help right away if you have a bad headache, chest pain, shortness of breath, a stiff or painful neck, or you vomit. This information is not intended to replace advice given to you by your health care provider. Make sure you discuss any questions you have with your health care provider. Document Released: 03/16/2009 Document Revised: 12/16/2019 Document Reviewed: 12/16/2019 [employer] Patient Education 2020 [employer]. Tonsillitis Tonsillitis is an infection of the throat. This infection causes the tonsils to become red, tender, and swollen. Tonsils are tissues in the back of your throat. If bacteria caused your infection, antibiotic medicine will be given to you. Sometimes, symptoms of this infection can be treated with the use of medicines that lessen swelling (steroids). If your tonsillitis is very bad (severe) and happens often, you may need to get your tonsils removed (tonsillectomy). Follow these instructions at home: Medicines Take ocge-xle-qveatmz and prescription medicines only as told by your doctor. If you were prescribed an antibiotic, take it as told by your doctor. Do not stop taking the antibiotic even if you start to feel better. Eating and drinking Drink enough fluid to keep your pee (urine) clear or pale yellow. While your throat is sore, eat soft or liquid foods like: ? Soup. ? Sherbert. ? Instant breakfast drinks. Drink warm fluids. Eat frozen ice pops. General instructions Rest as much as possible and get plenty of sleep. Gargle with a salt-water mixture 3 4 times a day or as needed. To make a salt-water mixture, completely dissolve -1 tsp of salt in 1 cup of warm water. Wash your hands often with soap and water. If there is no soap and water, use hand shelter supervisor. Do not share cups, bottles, or other utensils until your symptoms are gone. Do not smoke. If you need help quitting, ask your doctor. Keep all follow-up visits as told by your doctor. This is important. Contact a doctor if: You have large, tender lumps in your neck. You have a fever that does not go away after 2 3 days. You have a rash. You cough up green, yellow-brown, or bloody fluid. You cannot swallow liquids or food for 24 hours. Only one of your tonsils is swollen. Get help right away if: You have any new symptoms such as: ? Vomiting. ? Very bad headache. ? Stiff neck. ? Chest pain. ? Trouble breathing or swallowing. You have very bad throat pain and you also have drooling or voice changes. You have very bad pain that is not helped by medicine. You cannot fully open your mouth. You have redness, swelling, or severe pain anywhere in your neck. Summary Tonsillitis causes your tonsils to be red, tender, and swollen. While your throat is sore, eat soft or liquid foods. Gargle with a salt-water mixture 3 4 times a day or as needed. Do not share cups, bottles, or other utensils until your symptoms are gone. This information is not intended to replace advice given to you by your health care provider. Make sure you discuss any questions you have with your health care provider. Document Released: 03/16/2009 Document Revised: 09/10/2018 Document Reviewed: 11/03/2017 [employer] Patient Education 2020 [employer]. Additional Information VACCINATE! IT SAVES LIVES! Members of the community who have not yet received the COVID-19 vaccine and would like to receive it can visit one of [facility] vaccine clinics. There are many vaccine clinic locations within the [facility]. For locations and available times, please visit [email or web address] It is important to note that some COVID mobile vaccine clinics are held outdoors and may be canceled in rainy or stormy conditions. To learn more about pediatric vaccinations (ages 5-11), we invite you to visit the [facility] webpage. [email or web address].[email or web address]/pages [email or web address]-Cuvod-Ckzptdamjzx-Frequently-A sked-Questions.html To learn more about the COVID-19 vaccine, we invite you to visit the CDC website for a list of frequently asked questions.https://www.cdc.gov/coffman virus/2019-ncov/vaccines/faq.html [facility] Patient Portal Access Instructions: Stay connected with your healthcare team and access your personal medical information anytime with the [facility] Patient Portal. Please follow the directions below to create your [facility] account: 1.Access the email account you provided upon registration to the hospital/physician office.2.Look for an invitation email from [facility].3.Open the email and access the invitation link: Accept Invitation to [facility].4.Fill in the required batista to create your account. To access your account, visit [email or web address]. Click the blue button labeled Access Patient Portal and then log in with the username and password that you created in the steps above. You will be able to view your test results, lab results, a summary of your visits, upcoming appointments and more. There is also a convenient messaging option where you can send secure messages to your provider. In addition, you will have the ability to download any documents or summaries to your computer and/or send the information securely to a physician. Remember that your healthcare information is confidential, so carefully consider who you will allow to register on the [employer] Patient Portal for access to your information. You can also access the [employer] Patient Portal on the [facility] elvi. Simply click on Patient Portal and then log into your account. If you would like to receive a full copy of your medical records, please contact the [facility] Medical Records Department by calling [phone], Thursday through Thursday between 8 a.m. and 4:30 p.m. HOW TO SAFELY DISPOSE OF PRESCRIPTION MEDICATIONS Please use one of the following methods to safely dispose of your unused medications. 1.Use a drug disposal kit: the drug disposal pouch allows you to safely discard your old and unused drugs. Ask your nurse to give you one when you are discharged.2.Visit a local take-back location: Many local pharmacies and police departments have programs that collect old and unwanted prescription drugs. Call your local pharmacy or go to http://bit.FashionStake/8R4Qf8q to find one close to you.3.Make use of household items: Use cat litter or old coffee grounds to dispose medications if other options are not available. Mix your drugs with these household products, seal them in an airtight container and throw it into the garbage. Call [facility]: [phone] to be sure your drugs can be disposed of in this way. Some medicines may require a different approach.4.Never flush your medications down the toilet. IF YOU HAVE BEEN PRESCRIBED AN OPIOID FOR PAIN If you have been prescribed an opioid (such as hydrocodone, oxycodone or morphine), it is critical to understand the possible side effects and risks of opioid pain medications. Even when taken as directed, opioids can have several side effects including: Tolerance, meaning you might need to take more of a medication for the same pain relief. Nausea, vomiting and/or constipation. Sleepiness, dizziness, dry mouth, confusion, depression or itching. Physical dependence, meaning you have withdrawal symptoms when a medication is stopped, can develop within a few days. KNOW YOUR RESPONSIBILITIES It is important to know exactly how much and how often to take the opioid pain medications you are prescribed. Never take opioids in higher amounts or more often than prescribed. Do not combine opioids with alcohol or other drugs that cause drowsiness, such as benzodiazepines, also known as benzos, including diazepam and alprazolam, muscle relaxants or sleep aids. Never sell or share prescription opioids. This is illegal. Store opioids in a secure place and out of reach of others (including children, family, friends and visitors). The last page of this document has been signed and retained as a CHART COPY. Signatures Patient Education Materials Strep Throat, Adult, Flfi-bc-Ejim Tonsillitis, Lpgh-zt-Xlcy Medication Leaflets amoxicillin and clavulanate potassium, influenza virus vaccine, inactivated adjuvanted preservative-free quadrivalent intramuscular suspens My discharge plan and instructions have been reviewed and explained to me and I,KARINA MAN understand my current condition and have read and understand these discharge instructions. I have received a written copy of the plan/instructions. If I have questions, I am aware that I should contact my doctor. 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 Patient presented to [facility] emergency department by PCP for strep pharyngitis with concern for peritonsillar abscess. She was given dexamethasone in the office. In the emergency department she was afebrile and hemodynamically stable with adequate oxygenation on room air. Mild leukocytosis with white blood cell count of 16,000. Negative for mononucleosis. CT soft tissue neck with contrast shows enlarged and heterogeneous palantine tonsils most consistent with tonsillitis. There is no evidence of abscess. Incidentally there was a 2 cm left thyroid nodule with recommendation for outpatient ultrasound thyroid. 1.3 cm left thyroid nodule with no recommendations for follow-up. Patient was given a dose of Unasyn in the emergency department and subsequently admitted for observation. Overnight patient's vital signs remained stable and she did not require supplemental oxygen. White blood cell count this morning 18,000. CMP unremarkable. On exam today, pt denies any fever or chills. No headache or dizziness. Complains of sore throat. Denies chest pain, palpitations. No cough, dyspnea, sputum production. Denies N/V/D/C. No melena/hematochezia. No dysuria or hematuria. No new paresthesias. Review of Systems See HPI for specific ROS. All other systems reviewed and negative. Physical Exam Vitals and Measurements T: 36.6 C (Oral) TMIN: 36.6 C (Oral) TMAX: 37.6 C (Oral) HR: 74(Monitored) RR: 18 BP: 103/61 SpO2: 96% HT: 160 cm WT: 122.7 kg BMI: 47.93 Weight Dosing Weight: 122.7 kg (11/16/23) Dosing Weight: 122.7 kg (11/16/23) GEN: Appears chronically ill EYES: No conjunctival erythema, drainage. EOMI EARS: Hearing grossly intact. NOSE: No nasal discharge. THROAT: Pharynx pink, tonsils he are swollen CHEST: Normal S1 and S2. Rhythm is regular. Clear to auscultation, without rales, rhonchi, wheezing. ABD: Positive bowel sounds x 4 quads. Soft, nondistended, nontender. EXT: No significant deformity or joint abnormality. No edema. Peripheral pulses intact. NEURO: Sensation grossly intact SKIN: Skin color normal PSYCH: The mental examination revealed the patient was alert and oriented x 4 Lab Results 11/17 05:35 WBC: 18.7 H Hgb: 11.8 L Hct: 35.7 L Platelet: 263 Neutrophil %: 91.4 H Glucose Level: 159 H Sodium Level: 143 Potassium Level: 4.3 BUN: 13 Creatinine Lvl (s): 0.71 11/16 17:18 WBC: 16.3 H Hgb: 12.7 Hct: 37.5 Platelet: 257 Neutrophil %: 88.6 H Glucose Level: 150 H Sodium Level: 141 Potassium Level: 3.5 BUN: 9 Creatinine Lvl (s): 0.79 Imaging Results and Diagnostics CT Soft Tissue Neck w/ Contrast Result Date: November 16, 2023 Verified By: HUMBERTO HERNANDEZ MD CLINICAL STATEMENT: IMPRESSION: Enlarged and heterogeneous palatine tonsils most compatible with tonsillitis.No evidence of abscess. 2.0 cm left thyroid lobe nodule which can be correlated with nonemergentoutpatient thyroid ultrasound. I have personally reviewed the images of this examination and agree with theresident's findings and interpretation. RECOMMENDATIONS:1.3 cm incidental left thyroid nodule. No follow-up imaging is recommended. Reference: J Am Davon Radiol. 2015 Nov;12(2): 143-50 Assessment/Plan 1. Tonsillitis Tonsillitis-admitted for tonsillitis and monitoring due to difficulty swallowing. Patient had no respiratory distress. Unasyn 3 g IV every 6 hours. Dexamethasone 6 mg IV x 1 today. Patient started on a full liquid diet with no difficulties with intake. DVT prophylaxis: Lovenox Code Status: Full code Plan of care discussed with patient. All questions answered. Patient verbalizes understanding is agreeable to plan of care. This dictation was performed using voice recognition software and may include grammatical and/or spelling errors. Problem List/Past Medical History Ongoing Attention deficit disorder Chronic anxiety Dry skin Gastric reflux History of COVID-27 Feb 2021 Hot flash, menopausal Pedal edema Imani-menopausal PTSD (post-traumatic stress disorder) Sleep apnea Historical Abdominal pain Acute bacterial sinusitis Acute bacterial sinusitis Acute bacterial sinusitis Change in bowel habits Lumbar pain Rectal bleeding Shortness of breath with exposure to COVID-19 virus Viral URI with cough Procedure/Surgical History Esophagogastroduodenoscopy Colonoscopy Hernia Carpal tunnel release Tubal ligation Medications Home Medications (9) Active albuterol MDI (90 mcg/inh) CFC free inhalation aerosol 2 puff(s), PRN, Inhalation, q4h ammonium lactate 12% topical cream 1 elvi, PRN, Topical, BID Benadryl 25 mg oral capsule 25 mg = 1 cap(s), PRN, Oral, TID Flonase 50 mcg/inh nasal spray 50 mcg = 1 spray(s), Nostril, each, BID hydrochlorothiazide-triamterene 25 mg-37.5 mg oral tablet 1 tab(s), PRN, Oral, qDay LORazepam 1 mg oral tablet 1 mg = 1 tab(s), PRN, Oral, q6hr omeprazole 10 mg oral delayed release capsule (NF) 10 mg = 1 cap(s), Oral, qDayAC QUEtiapine 25 mg oral tablet , PRN topiramate 25 mg oral tablet 75 mg = 3 tab(s), Oral, qDay Allergies Latex Neurontin (serotonin syndrome) Percocet 5/325 Valium (Tachycardia) Vicodin Social History Smoking Status - 08/25/2017 Never smoker Alcohol - Denies Alcohol Use, 08/25/2017 Use: Never., 07/15/2019 Employment/School Status: Unemployed., 07/15/2019 Exercise Exercise type: Walking. 1-2 times/week Days per week:., 07/15/2019 Home/Environment None Domestic Concerns:. Living situation: Home/Independent. Multilevel home Lives In:., 07/15/2019 Nutrition/Health Type of diet: Regular. Appetite Good. Eating Difficulties None. Caffeine intake amount: 5 servings daily of coffee and tea., 04/25/2022 Substance Abuse - Denies Substance Abuse, 08/25/2017 Use: Never., 07/15/2019 Tobacco Tobacco Use: Never (less than 100 in lifetime)., 07/15/2019 Family History Unknown Immunizations tetanus-diphtheria toxoids: 0.5 mL (04/18/14) Code Status Code Status - Ordered -- 11/16/23 19:13:00 EST, Full Code, Constant Order Digitally Signed by SHAD ASHFORD APRN-PEARL on 11/17/2023 04:03 PM [facility] 11-17-2023 Evaluation + Plan note Extrac nora from: Title:History and Physical Author:SHAD ASHFORD APRN-SALES AND MARKETING ENGINEER Date:11/17/23 1. Tonsillitis Tonsillitis-admitted for tonsillitis and monitoring due to difficulty swallowing. Patient had no respiratory distress. Unasyn 3 g IV every 6 hours. Dexamethasone 6 mg IV x 1 today. Patient started on a full liquid diet with no difficulties with intake. DVT prophylaxis: Lovenox Code Status: Full code Plan of care discussed with patient. All questions answered. Patient verbalizes understanding is agreeable to plan of care. This dictation was performed using voice recognition software and may include grammatical and/or spelling errors. [facility] 02-05-2024 Note ORIGINAL EXAMINATION: CT OF THE NECK SOFT TISSUE WITH CONTRAST 11/16/2023 TECHNIQUE: CT of the neck was performed with the administration of intravenous contrast. Multiplanar reformatted images are provided for review. Automated exposure control, iterative reconstruction, and/or weight based adjustment of the mA/kV was utilized to reduce the radiation dose to as low as reasonably achievable. COMPARISON: None. HISTORY: ORDERING SYSTEM PROVIDED HISTORY: Reason for Exam: sore throat pain FINDINGS: PHARYNX/LARYNX: The palatine tonsils appear enlarged and heterogeneous without discrete collection to suggest abscess. SALIVARY GLANDS/THYROID: Salivary glands unremarkable. Enlarged thyroid gland. There is a hypodense left thyroid lobe nodule measuring 2.0 cm craniocaudal. LYMPH NODES: Borderline bilateral cervical lymph nodes are likely reactive given tonsillar findings. SOFT TISSUES: No appreciable soft tissue swelling or mass is seen. BRAIN/ORBITS/SINUSES: Unremarkable. LUNG APICES/SUPERIOR MEDIASTINUM: Unremarkable. BONES: No aggressive appearing lytic or blastic bony lesion. There are very mild degenerative changes of the cervical spine. IMPRESSION: Enlarged and heterogeneous palatine tonsils most compatible with tonsillitis. No evidence of abscess. 2.0 cm left thyroid lobe nodule which can be correlated with nonemergent outpatient thyroid ultrasound. I have personally reviewed the images of this examination and agree with the resident's findings and interpretation. RECOMMENDATIONS: 1.3 cm incidental left thyroid nodule. No follow-up imaging is recommended. Reference: J Am Davon Radiol. 2015 b;12(2): 143-50 Interpreted by: Humberto Hernandez Preliminary Report By: Oz Barry Electronically signed By Humberto Hernandez Dictated Date: 11/16/2023 6:10:11 PM Prelim Date: 11/16/2023 6:16:08 PM Sign Date: 11/16/2023 6:30:57 PM Ordering Provider: [facility]05-21-2023 Note. MICRO - Microbiology PROCEDURE: Urine Culture [*1] SOURCE: Urine, Clean Catch BODY SITE: COLLECTED DATE/TIME: 02/26/2023 15:37 EDT RECEIVED DATE/TIME: 02/27/2023 20:09 EDT START DATE/TIME: 02/27/2023 20:09 EDT FREE TEXT SOURCE: FINAL REPORTS Final Report [] Verified Date/Time/Personnel: 03/01/2023 08:01 EDT No growth at 48 hours. PRELIMINARY REPORTS Preliminary Report [] Verified Date/Time/Personnel: 02/28/2023 09:32 EDT No growth to date Performing Locations *1: This test was performed at: [address], [facility] , [facility] ([place])08-02-2021 Hospital Discharge instructions Patient Education 08/02/2021 14:23:19 Open Carpal Tunnel Release, Care After Open Carpal Tunnel Release, Care After This sheet gives you information about how to care for yourself after your procedure. Your health care provider may also give you more specific instructions. If you have problems or questions, contact your health care provider. What can I expect after the procedure? After the procedure, it is common to have: Wrist stiffness. Bruising. Follow these instructions at home: Bathing Do not take baths, swim, or use a hot tub until your health care provider approves. Ask your healthcare provider if you may take showers. Keep your bandage (dressing) dry until your health care provider says it can be removed. If you have a splint or brace: Wear the splint or brace as told by your health care provider. You may need to wear it for 2 3 weeks. Remove it only as told by your health care provider. Loosen the splint or brace if your fingers tingle, become numb, or turn cold and blue. Keep the splint or brace clean. If the splint or brace is not waterproof: ?Do not let it get wet. ?Cover it with a watertight covering when you take a bath or a shower. Incision care Follow instructions from your health care provider about how to take care of your incision. Make sure you: ?Wash your hands with soap and water before you change your dressing. If soap and water are not available, use hand shelter supervisor. ?Change your dressing as told by your health care provider. ?Leave stitches (sutures), skin glue, or adhesive strips in place. These skin closures may need to stay in place for 2 weeks or longer. If adhesive strip edges start to loosen and curl up, you may trim the loose edges. Do not remove adhesive strips completely unless your health care provider tells you to do that. Check your incision area every day for signs of infection. Check for: ?Redness, swelling, or pain. ?Fluid or blood. ?Warmth. ?Pus or a bad smell. Managing pain, stiffness, and swelling If directed, put ice on the affected area. ?If you have a removable splint or brace, remove it as told by your health care provider. ?Put ice in a plastic bag. ?Place a towel between your skin and the bag. ?Leave the ice on for 20 minutes, 2 3 times a day. Move your fingers often to avoid stiffness and to lessen swelling. Raise (elevate) your wrist above the level of your heart while you are sitting or lying down. Activity Do not drive until your health care provider approves. Do not drive or use heavy machinery while taking prescription pain medicine. Return to your normal activities as told by your health care provider. Avoid activities that cause pain. If physical therapy was prescribed, do exercises as told by your therapist. Physical therapy can help you heal faster and regain movement. General instructions Take ltfe-urd-mbtzldd and prescription medicines only as told by your health care provider. If you are taking prescription pain medicine, take actions to prevent or treat constipation. Your health care provider may recommend that you: ?Drink enough fluid to keep your urine pale yellow. ?Eat foods that are high in fiber, such as fresh fruits and vegetables, whole grains, and beans. ?Limit foods that are high in fat and processed sugars, such as fried or sweet foods. ?Take an fzza-mpf-bxcstov or prescription medicine for constipation. Do not use any products that contain nicotine or tobacco, such as cigarettes and e-cigarettes. If you need help quitting, ask your health care provider. Keep all follow-up visits as told by your health care provider and physical therapist. This is important. Contact a health care provider if: You have redness or swelling around your incision. You have fluid or blood coming from your incision. Your incision feels warm to the touch. You have pus or a bad smell coming from your incision. You have a fever. You have chills. You have pain that does not get better with medicine. Your carpal tunnel symptoms do not go away after 2 months. Your carpal tunnel symptoms go away and then come back. Get help right away if: You have pain or numbness that is getting worse. Your fingers or fingertips become very pale or bluish in color. You are not able to move your fingers. Summary It is common to have wrist stiffness and bruising after a carpal tunnel release. Icing and raising (elevating) your wrist may help to lessen swelling and pain. Call your health care provider if you have a fever or notice any signs of infection in your incision area. This information is not intended to replace advice given to you by your health care provider. Make sure you discuss any questions you have with your health care provider. Document Released: 04/17/2006 Document Revised: 09/10/2018 Document Reviewed: 06/07/2018 [employer] Patient Education 2020 [employer]. Follow Up Care 07/22/2021 10:26:44 With:AMBIKA ARSHAD MD Address: [phone] When: Unknown [facility] 03-31-2021 Note ADDITIONAL PROCEDURES PRESENT Specimen originated from [facility] Specimen #: [id number] Submitting Physician: YAMILEX VOGEL DO SPECIMEN SUBMITTED A: CERVICAL, SCREENING, FLUID FINAL DIAGNOSIS A. CERVICAL, SCREENING, FLUID Satisfactory for interpretation. Negative for intraepithelial lesion or malignancy. This specimen has been analyzed by the ThinPrep Imaging System, an automated imaging and review system, which assists the laboratory in evaluating cells on ThinPrep Pap tests. Following automated imaging, selected batista from every slide are reviewed by a research mechanic. OTTONIEL Lubin(ASCP) (Electronic Signature) ADDITIONAL PROCEDURE(S) HUMAN PAPILLOMA VIRUS Date Ordered: 01/10/2021 Date Reported: 01/11/2021 Procedure Results and Interpretation Negative for HPV DNA high risk type 16 by PCR. Negative for HPV DNA high risk type 18 by PCR. Negative for HPV DNA high risk types: 31,33,35,39,45,51,52,56,58,59,66,68 by PCR. This test was developed and its performance characteristics determined by [facility]'s [facility] [place] ([facility]). It has not been cleared or approved by the FDA. [facility] is regulated under CLIA as qualified to perform high-complexity testing. This test is used for clinical purposes. It should not be regarded as investigational or for research. 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 CLIA Number: [id number] The Pap Smear is a screening test for cervical cancer. False negative results occur with all screening tests, emphasizing the need for rescreening at recommended intervals, and clinical correlation.[facility]03-31-2021 NoteHNO ID: [id number] Author: Yamilex Vogel Service: ? Author Type: Physician Type: Progress Notes Filed: 01/09/2021 4:54 PM Note Text: KARINA is a 45 year old No obstetric history on file. who presents for an annual gynecologic exam with complaints, irregular bleeding. Menses: Has had irregular cycles since menarche. Known history of PCOS. 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 Time with current partner: 30 History of PCOS: Yes Pain with intercourse: Yes - occasional Postcoital bleeding: Yes - spotting OB History No obstetric history on file. PAST MEDICAL HISTORY Diagnosis Date - Chronic sinusitis - Esophagitis - ALLY (generalized anxiety disorder) - PCOS (polycystic ovarian syndrome) PAST SURGICAL HISTORY Procedure Laterality Date - COLONOSCOPY GEN ANES 04/2020 - COLONOSCOPY GEN ANES 2013 - EGD 04/2020 - EGD 2013 - LIGATE FALLOPIAN TUBE 1996 - REPAIR ING HERNIA,5+Y/O,REDUCIBL 2013 - REVISE MEDIAN N/CARPAL TUNNEL SURG Right 2013 FAMILY HISTORY Problem Relation Age of Onset - Thyroid Mother - Thyroid Sister - other (epilepsy) Sister - Diabetes Sister - ADD/ADHD Brother - Ovarian cancer Maternal Grandmother - Prostate Cancer Maternal Grandfather SOCIAL HISTORY Social History Tobacco Use - Smoking status: Former Smoker - Smokeless tobacco: Never Used Vaping Use - Vaping Use: Never used Substance Use Topics - Alcohol use: Not Currently - Drug use: Not Currently REVIEW OF SYSTEMS Abdomen: No abdominal pain, nausea, vomiting, diarrhea, or constipation. No bloating, early satiety, indigestion, or increased flatulence. Bladder: No dysuria, gross hematuria, urinary frequency, urinary urgency, or incontinence. Breast: No breast lumps, nipple d/c, overlying skin changes, redness or skin retraction. +Left sided focal breast pain for several weeks Allergies and current medication updated:Yes EXAM: BP 120/80 Ht 5' 3 (1.60m) Wt 262 lb 6.4 oz (119.0kg) LMP 12/06/2020 BMI 46.49 kg/(m2). GENERAL: pleasant, female in no apparent distress HEENT: Normocephalic, atraumatic, mucus membranes moist and no lesions NECK: full range of motion DERMATOLOGY: Normal, without lesions, non-icteric and non-hirsute BREAST: soft, non-tender, symmetric, no dominant mass, normal nipple-areolar complex, no lymphadenopathy and no nipple discharge CHEST: Normal inspiratory effort ABDOMEN: soft, non-tender and no masses PELVIC: external genitalia normal, normal Bartholin's glands, urethra, [place]'s glands, no vulvar lesions, no cervical lesions, good vaginal support, physiologic discharge present, normal appearing perineal body and perianal region BIMANUAL: uterus normal size, shape and consistency, no adnexal masses and non-tender RECTOVAGINAL: deferred. NEURO: exam grossly non-focal EXTREMITIES: normal ASSESSMENT/PLAN: 1) Health maintenance: Pap done with HPV. Mammogram ordered. Persistent left sided breast pain that is focal. Normal exam today. Diagnostic mammogram and US ordered. Nutrition, exercise and routine health maintenance exams reviewed. DUB: Known h/o PCOS per patient. Recommend Mirena IUD. Will check pelvic US and EMB. Patient considering IUD. 2) Contraception: tubal sterilization. Contraceptive options reviewed and information provided. 3) STD screening: Declined STD check. 4) Follow up one year or sooner as needed [facility]ilex Vogel, [facility] Future App[facility] Evaluation + Plan note Future Appointments Appointment Date:04/25/2022 03:00:00 PM Scheduled Provider:BRANDEN VAUGHAN DO Location:[facility] Appointment Type:PC OV Follow Up [facility] Hospital course Narrative No data available for this section [facility] Hospital Discharge instructions No data available for this section [facility] Progress note No data available for this section [facility] Summary Purpose Family History No Family History Records FoundNo Family History Records Found No data available for this section No Family History Records Found Advance Directives No Advanced Directives Records FoundNo Advanced Directives Records FoundNo Advanced Directives Records Found Additional Source Comments INFORMATION SOURCE (unrecogn ized section and content) DATE CREATED AUTHOR 03/15/2020 [employer] DATE CREATED AUTHOR AUTHOR'S ORGANIZ ATION 11/10/2021 [facility] DATE CREATED AUTHOR AUTHOR'S ORGANIZ ATION 12/08/2023 [facility] Care Team (unrecognized sect ion and content) Personnel Name: BRANDEN VAUGHAN DO Address: [address] [place] [address] Name: Adrien Guevara Clerkris Craven PT Care Team Personnel Name: Adrien Guevara 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 This clinical summary was aggregated from multiple sources. Caution should be exercised in using it in the provision of clinical care. This summary normalizes information from multiple sources, and as a consequence, information in this document may materially change the coding, format and clinical context of patient data. In addition, data may be omitted in some cases. CLINICAL DECISIONS SHOULD BE BASED ON THE PRIMARY CLINICAL RECORDS. [facility] [employer] [facility]. provides no warranty or guarantee of the accuracy or completeness of information in this document.
== END | disposition home or self-care (01) ==
LOC: LABSPEC 15:14
PROVIDERS: PCP Preventive Medicine Occupational Medicine; Referring Provider Otolaryngology; Visit Provider Otolaryngology
DX: J35.01 Chronic tonsillitis (principal)
CPT/HCPCS: 87070

== ENCOUNTER → 2025-01-13 | Outpatient (CLI) | payer BC, SELFPAY ==
--- NOTE | 2025-01-13 14:09 | US_ITS ---
PROCEDURE: THYROID 01/13/2025 REASON FOR EXAM: NONTOXIC MULTINODULAR GOITER FINDINGS: The right lobe of the gland measures 6.2 cm elbow 2.4 cm AP x 2.5 cm T. The left lobe measures 5.9 cm mL by 2.6 cm AP x 2.1 cm T. The isthmus is 7.7 mm in thickness. These measurements indicate an enlarged gland. In the right lobe posteriorly there is a small ovoid nodule measuring 1.3 cm by 0.66 cm by 0 point 8 6 cm. Mostly solid (2); isoechoic (1); wider than tall (0); smooth margins (0); and no echogenic foci. A TR 3 nodule. Guidelines indicate no biopsy or follow-up imaging required. 5 mm colloid cyst in the right lobe lower pole. TR 0, no follow-up. The isthmus measures 7.7 mm in thickness suggesting an enlarged gland In the lower pole of the left lobe there is a mostly solid nodule measuring 1.7 cm by 1.3 cm x 1.9 cm. The nodule is almost completely solid (2); hyperechoic or isoechoic (1); wider than tall (0); smooth margins (0) and no calcifications. TR 3 follow-up imaging in 1 year recommended. In the mid left lobe there is a mostly cystic nodule measuring 1.9 cm by 1.7 cm x 1.4 cm TR 0. No follow-up. US/Thyroid IMPRESSION: Multinodular goiter. According to ACR guidelines, nodules are identified which are not suspicious enough to require FNA. Left lobe 1.7 cm solid nodule should undergo ultrasound follow-up in 1 year Reading [facility]
== END | disposition home or self-care (01) ==
LOC: US 14:07
PROVIDERS: PCP Preventive Medicine Occupational Medicine; Referring Provider Otolaryngology; Visit Provider Otolaryngology
DX: E04.2 Nontoxic multinodular goiter (principal)
CPT/HCPCS: 76536